=== PATIENT | female | born 1990 ===

== ENCOUNTER 2017-03-28 20:13 | Emergency (ER) | payer OTHER ==
[2017-03-28 20:31] VITALS: RESP 20; TEMP 97.6; O2SAT 100; BMI 25.7
[2017-03-28] MEDS ORDERED: TraMADol/Apap 37.5/325 mg Tab PO STA (22:27)
--- NOTE | 2017-03-28 22:39 | ED PDOC ---
Arrival/HPI - General Chief Complaint: Upper Extremity Problem/Injury Time Seen by Provider: 03/28/17 20:44 Historian: Patient - History of Present Illness Narrative History of Present Illness (Text): 03/28/17 22:36 Taty Montenegro is a 26 year old female who presents to the emergency department complaining of left shoulder pain for past week. States that pain is worsened with movement. Denies any trauma to area. States that she slept with a pillow under her shoulder a week ago and has had the pain since then. Reports of decreased range of motion secondary to pain. Denies fever, chills, swelling/ weakness/numbness of extremities, nausea, vomiting, urinary symptoms, or any other complaints at this time. Time/Duration: 1 week Symptom Course: Unchanged Severity Level: Mild Activities at Onset: Light Past Medical History - Provider Review Nursing Documentation Reviewed: Yes - Infectious Disease Hx of Infectious Diseases: None - Tetanus Immunization Tetanus Immunization: Unknown - Past Medical History Past Medical History: No Previous - Cardiac Hx Cardiac Disorders: No - Pulmonary Hx Respiratory Disorders: No - Neurological Hx Neurological Disorder: No Hx Vertigo: Yes - HEENT Hx HEENT Disorder: No - Renal Hx Renal Disorder: No - Endocrine/Metabolic Hx Endocrine Disorders: No - Hematological/Oncological Hx Blood Disorders: Yes Hx Anemia: Yes - Integumentary Hx Dermatological Disorder: No - Musculoskeletal/Rheumatological Hx Musculoskeletal Disorders: No - Gastrointestinal Hx Gastrointestinal Disorders: No - Genitourinary/Gynecological Hx Genitourinary Disorders: No - Psychiatric Hx Psychophysiologic Disorder: No Hx Substance Use: Yes - Past Surgical History Past Surgical History: No Previous - Surgical History Hx Orthopedic Surgery: Yes (/l knee meniscus) - Anesthesia Hx Anesthesia: Yes Hx Anesthesia Reactions: No Hx Malignant Hyperthermia: No - Suicidal Assessment Feels Threatened In Home Enviroment: No Family/Social History - Physician Review Nursing Documentation Reviewed: Yes Family/Social History: No Known Family HX Smoking Status: Former Smoker Hx Alcohol Use: No Hx Substance Use: Yes Substance used: Marijuana Hx Substance Use Treatment: No Allergies/Home Meds Allergies/Adverse Reactions: Allergies No Known Allergies Allergy (Verified 03/28/17 20:31) Review of Systems - Physician Review All systems were reviewed & negative as marked: Yes - Review of Systems Constitutional: Normal. absent: Fatigue, Fevers Respiratory: Normal. absent: SOB, Cough, Sputum Cardiovascular: Normal. absent: Chest Pain, Palpitations Musculoskeletal: Other (left shoulder pain ) Neurological: absent: Headache, Dizziness Psychiatric: Normal Physical Exam Vital Signs Reviewed: Yes Vital Signs Temp Pulse Resp BP Pulse Ox 03/28/17 22:56 70 20 110/70 100 03/28/17 20:30 97.6 F 72 20 114/69 100 Temperature: Afebrile Blood Pressure: Normal Pulse: Regular Respiratory Rate: Normal Appearance: Positive for: Well-Appearing, Non-Toxic, Comfortable Pain Distress: None Mental Status: Positive for: Alert and Oriented X 3 - Systems Exam Head: Present: Atraumatic, Normocephalic Pupils: Present: PERRL Conjunctiva: Present: Normal Mouth: Present: Moist Mucous Membranes Respiratory/Chest: Present: Clear to Auscultation, Good Air Exchange. No: Respiratory Distress, Accessory Muscle Use Cardiovascular: Present: Regular Rate and Rhythm, Normal S1, S2. No: Murmurs Upper Extremity: Present: NORMAL PULSES, Neurovascularly Intact, Other (pain with abduction of left shoulder ). No: Cyanosis, Edema, Swelling, Erythema, Deformity Lower Extremity: Present: Normal Inspection. No: Edema Neurological: Present: GCS=15, CN II-XII Intact, Speech Normal, Motor Func Grossly Intact, Normal Sensory Function Skin: Present: Warm, Dry, Normal Color. No: Rashes Psychiatric: Present: Alert, Oriented x 3, Normal Insight, Normal Concentration Medical Decision Making ED Course and Treatment: 03/28/17 22:42 Impression: A 26 year old female who presents to the emergency department complaining of 1 week duration of left shoulder pain. Plan: -- Ultracet -- Shoulder X-ray -- Urinalysis -- Reassess and disposition Progress Notes: 03/28/17 22:42 Shoulder X-ray results reviewed: Negative for any acute fracture or dislocation. On reevaluation the patient feels better and is in no acute distress. I have discussed the results and plan with the patient, who expresses understanding. Patient given the opportunity to ask question, all questions were answered and there is agreement with the plan to discharge the patient home. Patient is stable for discharge. Patient was instructed to follow up with physician/clinic in 1-2 days or return if symptoms persist/worsen or new concerning symptoms arise. - Lab Interpretations Lab Results: Lab Results 03/28/17 21:30: Urine HCG, Qual Negative I have reviewed the lab results: Yes - RAD Interpretation Radiology Orders: 03/28/17 20:59 SHOULDER LEFT [RAD] Stat Chaser Helper: ED Physician - Medication Orders Current Medication Orders: Discontinued Medications Tramadol/Acetaminophen (Ultracet 37.5/325 Mg) 1 tab PO ONCE STA Stop: 03/28/17 22:28 Last Admin: 03/28/17 22:55 Dose: 1 tab - Scribe Statement The provider has reviewed the documentation as recorded by the Yajaira Guevara Provider Attestation: All medical record entries made by the Davonibpetra were at my direction and personally dictated by me. I have reviewed the chart and agree that the record accurately reflects my personal performance of the history, physical exam, medical decision making, and the department course for this patient. I have also personally directed, reviewed, and agree with the discharge instructions and disposition. Disposition/Present on Arrival - Present on Arrival Any Indicators Present on Arrival: No History of DVT/PE: No History of Uncontrolled Diabetes: No Urinary Catheter: No History of Decub. Ulcer: No History Surgical Site Infection Following: None - Disposition Have Diagnosis and Disposition been Completed?: Yes Diagnosis: Shoulder pain Disposition: HOME/ ROUTINE Disposition Time: 22:40 Condition: GOOD Discharge Instructions (ExitCare): Shoulder Sprain (ED) Prescriptions: Tramadol HCl [Ultram] 50 mg PO QID #12 tab Referrals: Aleks Roman MD [Staff Provider] - Follow up with primary Denny Khoury DO [Primary Care Provider] - Follow up with primary
[2017-03-28 22:56] VITALS: BP 110/70; PULSE 70
--- NOTE | 2017-03-29 09:49 | RAD ---
PROCEDURE: Radiographs of the Left Shoulder HISTORY: pain COMPARISON: 09/21/2014 FINDINGS: BONES: Normal. No fracture. JOINTS: Normal. Glenohumeral and acromioclavicular joints preserved. No osteoarthritis. SOFT TISSUES: Normal. OTHER FINDINGS: None. IMPRESSION: Normal radiographs of the left shoulder.
== END 2017-03-28 22:57 | disposition home or self-care (01) ==
LOC: ED 20:13
DX: M25.512 Pain in left shoulder (principal)

== ENCOUNTER 2017-05-03 21:38 | Inpatient (IN) | payer OTHER ==
[2017-05-03 21:38] VITALS: BMI 25.7
[2017-05-03 21:45] VITALS: RESP 20; O2SAT 100
--- NOTE | 2017-05-03 21:59 | ED PDOC ---
Arrival/HPI - General Chief Complaint: Psychiatric Evaluation Time Seen by Provider: 05/03/17 21:43 Historian: Patient - History of Present Illness Narrative History of Present Illness (Text): 05/03/17 21:54 26yo female biba with the mother by the bedside for depression. Patient states she has been depressed since January. the mother who was by the bedside states patient is staying more in her bed, refusing to eat and threatening to commit suicide since she lost her job. States She came back today and met patient laying on the floor, vomiting with open medication bottles. Patient however denies SI. States she took 3tabs of Amoxicillin because she was having toothache. She reports vomiting for the past one week. Mother however states she only noticed the vomiting today. Patient denies suicidal ideation, HI, hallucination, Denies abdominal pain, diarrhea, headache, Past Medical History - Provider Review Nursing Documentation Reviewed: Yes - Infectious Disease Hx of Infectious Diseases: None - Tetanus Immunization Tetanus Immunization: Unknown - Past Medical History Past Medical History: No Previous - Cardiac Hx Cardiac Disorders: No - Pulmonary Hx Respiratory Disorders: No - Neurological Hx Neurological Disorder: No Hx Vertigo: Yes - HEENT Hx HEENT Disorder: No - Renal Hx Renal Disorder: No - Endocrine/Metabolic Hx Endocrine Disorders: No - Hematological/Oncological Hx Blood Disorders: Yes Hx Anemia: Yes - Integumentary Hx Dermatological Disorder: No - Musculoskeletal/Rheumatological Hx Musculoskeletal Disorders: No - Gastrointestinal Hx Gastrointestinal Disorders: No - Genitourinary/Gynecological Hx Genitourinary Disorders: No - Psychiatric Hx Psychophysiologic Disorder: No Hx Substance Use: Yes (quit on February 2017) - Past Surgical History Past Surgical History: No Previous - Surgical History Hx Orthopedic Surgery: Yes (/l knee meniscus) - Anesthesia Hx Anesthesia: Yes Hx Anesthesia Reactions: No Hx Malignant Hyperthermia: No - Suicidal Assessment Feels Threatened In Home Enviroment: No Family/Social History - Physician Review Nursing Documentation Reviewed: Yes Family/Social History: Unknown Family HX Smoking Status: Former Smoker Hx Alcohol Use: No Hx Substance Use: Yes (quit on February 2017) Substance used: Marijuana Hx Substance Use Treatment: No Allergies/Home Meds Allergies/Adverse Reactions: Allergies No Known Allergies Allergy (Verified 03/28/17 20:31) Home Medications: Home Meds Medication Instructions Recorded Confirmed No Known Home Med 05/03/17 05/03/17 Review of Systems - Physician Review All systems were reviewed & negative as marked: Yes - Review of Systems Constitutional: Normal Eyes: Normal ENT: Normal Respiratory: Normal Cardiovascular: Normal Gastrointestinal: Normal Genitourinary Female: Normal Musculoskeletal: Normal Skin: Normal Neurological: Normal Endocrine: Normal Hemo/Lymphatic: Normal Psychiatric: Depression. absent: Anxiety, Suicidal Ideation Physical Exam Vital Signs Reviewed: Yes Vital Signs Temp Pulse Resp BP Pulse Ox 05/03/17 21:45 98.3 F 82 20 131/70 100 Temperature: Afebrile Blood Pressure: Normal Pulse: Regular Respiratory Rate: Normal Appearance: Positive for: Well-Appearing, Non-Toxic, Comfortable Pain Distress: None Mental Status: Positive for: Alert and Oriented X 3 - Systems Exam Head: Present: Atraumatic, Normocephalic Pupils: Present: PERRL Extroacular Muscles: Present: EOMI Conjunctiva: Present: Normal Mouth: Present: Moist Mucous Membranes Neck: Present: Normal Range of Motion Respiratory/Chest: Present: Clear to Auscultation, Good Air Exchange. No: Respiratory Distress, Accessory Muscle Use Cardiovascular: Present: Regular Rate and Rhythm, Normal S1, S2. No: Murmurs Abdomen: Present: Normal Bowel Sounds. No: Tenderness, Distention, Peritoneal Signs Back: Present: Normal Inspection Upper Extremity: Present: Normal Inspection. No: Cyanosis, Edema Lower Extremity: Present: Normal Inspection. No: Edema Neurological: Present: GCS=15, CN II-XII Intact, Speech Normal Skin: Present: Warm, Dry, Normal Color. No: Rashes Psychiatric: Present: Alert, Oriented x 3, Normal Insight, Normal Concentration , Depressed Mood Medical Decision Making ED Course and Treatment: 05/03/17 23:30 PT was stable in ED and medically cleared in ED for psych evaluation. She was seen in ED by PES screener Jerson. Jerson states patient refused to sign in voluntarily and Dr. Roberts request [facility] to screen the patient. 05/04/17 00:36 Pt later changed her mind and signed in voluntarily. she was admitted to Dr. Roberts. - Lab Interpretations Lab Results: 05/03/17 22:49 05/03/17 22:49 Lab Results 05/03/17 23:59: Urine Opiates Screen Positive H, Urine Methadone Screen Negative , Ur Barbiturates Screen Negative, Ur Phencyclidine Scrn Negative, Ur Amphetamines Screen Negative, U Benzodiazepines Scrn Negative, U Oth Cocaine Metabols Negative, U Cannabinoids Screen Negative 05/03/17 23:59: Urine Color Yellow, Urine Appearance Sl cloudy, Urine pH 6.0, Ur Specific [place] >= 1.030, Urine Protein Trace H, Urine Glucose (UA) Negative , Urine Ketones Trace H, Urine Blood Large H, Urine Nitrate Negative, Urine Bilirubin Negative, Urine Urobilinogen 0.2, Ur Leukocyte Esterase Negative, Urine RBC 5 - 10, Urine WBC 0 - 2, Ur Epithelial Cells 0 - 2, Urine Bacteria Small 05/03/17 22:49: Alcohol, Quantitative < 10 05/03/17 22:49: Salicylates < 1 L, Acetaminophen < 10.0 L 05/03/17 22:49: Sodium 137, Potassium 4.0, Chloride 105, Carbon Dioxide 23, Anion Gap 13, BUN 10, Creatinine 0.7, Est GFR ( Amer) > 60, Est GFR (Non- Af Amer) > 60, Random Glucose 96, Calcium 9.7, Total Bilirubin 0.6, AST 23, ALT 25, Alkaline Phosphatase 70, Total Protein 8.0, Albumin 4.3, Globulin 3.7, Albumin/Globulin Ratio 1.2 05/03/17 22:49: WBC 12.8 H, RBC 4.13, Hgb 11.7 L, Hct 35.8 L, MCV 86.7, MCH 28.3 , MCHC 32.7, RDW 13.2, Plt Count 283, MPV 9.8, Gran % 86.3 H, Lymph % (Auto) 10.3 L, [place] % (Auto) 3.1, Eos % (Auto) 0.1 L, Baso % (Auto) 0.2, Gran # 11.04 H , Lymph # 1.3, [place] # 0.4, Eos # 0.0, Baso # 0.02 Disposition/Present on Arrival - Present on Arrival Any Indicators Present on Arrival: No History of DVT/PE: No History of Uncontrolled Diabetes: No Urinary Catheter: No History of Decub. Ulcer: No History Surgical Site Infection Following: None - Disposition Have Diagnosis and Disposition been Completed?: Yes Diagnosis: Major depressive episode Disposition: HOSPITALIZED Disposition Time: 00:15 Patient Problems: Current Active Problems Problem Status Onset Major depressive episode Acute Condition: FAIR
[2017-05-03 23:04] LABS: ADD MANUAL DIFF? NO
[2017-05-03 23:13] LABS: BASO # 0.02 K/mm3 (0.0-2.0); BASO % 0.2 % (0.0-3.0); EOS % 0.1 % (1.5-5.0); GRAN # 11.04 (1.4-6.5); GRAN % 86.3 % (50.0-68.0); HEMATOCRIT 35.8 % (36.0-48.0); LYMPH # 1.3 (1.2-3.4); LYMPH % 10.3 % (22.0-35.0); MEAN CELL VOLUME 86.7 fL (80.0-105.0); MEAN CORPUSCULAR HEMOGLOBIN 28.3 pg (25.0-35.0); MEAN CORPUSCULAR HGB CONC 32.7 g/dl (31.0-37.0); MEAN PLATELET VOLUME 9.8 fl (7.0-11.0); MONO # 0.4 (0.1-0.6); MONO % 3.1 % (1.0-6.0); PLATELET COUNT 283 10^3/uL (120.0-450.0); RED CELL DISTRIBUTION WIDTH 13.2 % (11.5-14.5); WHITE BLOOD COUNT 12.8 10^3/ul (4.5-11.0)
[2017-05-03 23:25] LABS: ALB/GLOB RATIO 1.2 (1.1-1.8); ALKALINE PHOSPHATASE 70 U/L (38-133); ALT/SGPT 25 U/L (7-56); AST/SGOT 23 U/L (15-39); BILIRUBIN,TOTAL 0.6 mg/dL (0.2-1.3); BLOOD UREA NITROGEN 10 mg/dL (7-21); CALCIUM 9.7 mg/dL (8.4-10.5); CARBON DIOXIDE 23 mmol/L (21-33); CHLORIDE 105 mmol/L (98-107); GFR AFRICAN-AMERICAN > 60; GLUCOSE,RANDOM 96 mg/dL (70-110); SODIUM 137 mmol/L (132-148)
[2017-05-04 00:12] LABS: URINE BILIRUBIN NEGATIVE (NEGATIVE); URINE BLOOD LARGE (NEGATIVE); URINE GLUCOSE (UA) NEGATIVE (NEGATIVE); URINE KETONE TRACE mg/dL (NEGATIVE); URINE LEUKOCYTE ESTERASE NEGATIVE Leu/uL (NEGATIVE); URINE PROTEIN TRACE mg/dL (<30 mg/dL); URINE UROBILINOGEN 0.2 E.U./dL (<1 E.U./dL)
[2017-05-04 00:13] LABS: URINE APPEARANCE SL CLOUDY (CLEAR); URINE COLOR YELLOW (YELLOW)
[2017-05-04 00:19] LABS: URINE EPITHELIAL CELLS 0 - 2 /hpf (0-5); URINE WBC 0 - 2 /hpf (0-6)
[2017-05-04 00:20] LABS: URINE BACTERIA SMALL (NEG)
[2017-05-04] MEDS ORDERED: Alum-Mag Hydrox-Simethicone Susp (30 mL) PO PRN (02:03)
[2017-05-04] MEDS ORDERED: Magnesium Hydroxide Susp 30 ml UD PO PRN (02:03)
--- NOTE | 2017-05-04 03:54 | PCM.BM ---
<Emery Abreu - Last Filed: 05/04/17 03:53> Treatment Plan Problems - Problems identified on initial assessmt Problem 1 Date Initiated: Depression Time Initiated: 03:54 Assessment reference: NA Status: Active Priority: 1 <Alejandra Young - Last Filed: 05/04/17 09:47> DSM5-Treatment Plan - Diagnosis (1) Overdose Status: Acute Interventions: 05/04/17 09:47 monitor vitals coping strategies suicide and homicide prevention safety plan pt will be seen by medical team supportive therapy (2) Adjustment disorder with mixed anxiety and depressed mood Status: Acute Interventions: 05/04/17 09:53 * Assess/adjust medications daily and /or as needed * See patient on an individual basis 7x/week to assess symptoms * Educate patient regarding benefits, side effects and risks of prescribed medications * supportive therapy * family involvement * SW evaluation (3) Self-injurious behavior Status: Acute Interventions: 05/04/17 09:55 CBT safety plan coping strategies therapy/med management suicide and homicide prevention (4) Major depressive episode Status: Acute Interventions: 05/04/17 09:55 * Assess/adjust medications daily and /or as needed * See patient on an individual basis 7x/week to assess symptoms of depression * Monitor for side effects & effectiveness of medications * suicide and homicide prevention * meds and f/u compliance * supportive therapy <Nia Montenegro - Last Filed: 05/04/17 12:22> Treatment Plan Problems - Problems identified on initial assessmt Problem 1 Date Initiated: 05/04/17 Treatment team patient informa Patient Assests: cooperative, motivated, ADL independent, physically healthy, good support system, cognitively intact Patient Liabilities: financial problems - Milieu Protocol Maintain good personal hygiene: daily Encourage regular showers, daily Remind patient to perform daily oral care, daily Assist patient to perform ADL's Conduct patient checks and document Observation sheet: Q15 minutes Maintain personal safety: daily Educate patient to report safety concerns to staff, daily Monitor environment for contraband/sharps Medication safety: Monitor for expected outcome, potential side effects: daily, Assess barriers to learning: daily, Assess readiness for medication education: daily Family Contact Family contact: Patient agrees to contact - Goals for Treatment Patient goals for treatment: to get out of here to get a job Discharge/Continuing Care - Education Needs Education Needs: Patient Medication, Patient Diagnosis/Disease Process, Patient Coping Skills, Patient Community resources, Patient Activities of Daily Living, Patient Health Practices/Safety, Patient Personal Hygiene/Grooming, Patient Aftercare Safety Plan - Discharge Discharge Criteria: Free of Suicidal thoughts, Normal sleep pattern Discharge to:: Home - Treatment Team Participation Was Patient/Family/SO present at Treatment Team Meeting: Yes <Carolina Perez - Last Filed: 05/04/17 17:14> Family Contact Family involvement: Family/SO is involved Family contact: Family contacted unit to give information Family contact name: Bárbara Cuevas(mother) [phone] Family contacted how many times per week?: 2
[2017-05-04 08:35] LABS: CHOLESTEROL 165 mg/dL (130-200)
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
--- NOTE | 2017-05-04 15:58 | CARD ---
APPROVED REPORT EKG Measurement Heart [id number] <Conclusion> Normal sinus rhythm Normal ECG
--- NOTE | 2017-05-04 16:03 | CP.PCM.CON ---
History of Present Illness - History of Present Illness History of Present Illness: Hospitalist note: Routine medical evaluation. patient seen examined in room 517. Patient is alert, awake And oriented. Patient is a 26 year-old female admitted with depression and suicidal thoughts. Patient currently denies any suicidal/homicidal ideation. Denies any fevers, chills. Denies any abdominal pain, nausea, vomiting. denies any urinary, bowel symptoms. Denies any chest pain,shortness of breath. denies any diarrhea. Tolerating diet well. Ambulating fine. Patient took 2 pills of amoxicillin given by dentist. Patient initially wanted to take pain pills to control her tooth ache. patient is complaining of increasing depression secondary to losing her job and her house. Recently moved back with her mother in [place]. denies any previous psychiatric problems. Past medical history; anemia dental caries Medications at home; Amoxicillin Allergies; No known drug allergy Social history; denies smoking Denies alcohol abuse denies drug abuse family history; Not significant Currently lives in [place] with her mother Review of Systems - Constitutional Constitutional: absent: Anorexia, Chills - EENT Eyes: absent: Blurred Vision Nose/Mouth/Throat: absent: Nasal Congestion - Cardiovascular Cardiovascular: absent: Chest Pain, Chest Pain at Rest, Edema - Respiratory Respiratory: absent: Cough, Dyspnea, Wheezing - Gastrointestinal Gastrointestinal: absent: Abdominal Pain, Cramping, Diarrhea, Nausea, Vomiting - Musculoskeletal Musculoskeletal: absent: Abnormal Gait - Psychiatric Psychiatric: absent: Anxiety, Depression - Hematologic/Lymphatic Hematologic: absent: Easy Bleeding, Easy Bruising Past Patient History - Infectious Disease Hx of Infectious Diseases: None - Tetanus Immunizations Tetanus Immunization: Unknown - Past Social History Smoking Status: Former Smoker Alcohol: None Drugs: Denies Home Situation {Lives}: With Family - CARDIAC Hx Cardiac Disorders: No - PULMONARY Hx Respiratory Disorders: No - NEUROLOGICAL Hx Neurological Disorder: No Hx Vertigo: Yes - HEENT Hx HEENT Problems: No - RENAL Hx Chronic Kidney Disease: No - ENDOCRINE/METABOLIC Hx Endocrine Disorders: No - HEMATOLOGICAL/ONCOLOGICAL Hx Blood Disorders: Yes Hx Anemia: Yes - INTEGUMENTARY Hx Dermatological Problems: No - MUSCULOSKELETAL/RHEUMATOLOGICAL Hx Musculoskeletal Disorders: No - GASTROINTESTINAL Hx Gastrointestinal Disorders: No - GENITOURINARY/GYNECOLOGICAL Hx Genitourinary Disorders: No - PSYCHIATRIC Hx Substance Use: Yes (marijuana-quit March 10, 2017) - SURGICAL HISTORY Hx Orthopedic Surgery: Yes (/l knee meniscus) - ANESTHESIA Hx Anesthesia: Yes Hx Anesthesia Reactions: No Hx Malignant Hyperthermia: No Meds Allergies/Adverse Reactions: Allergies Allergy/AdvReac Type Severity Reaction Status Date / Time No Known Allergies Allergy Verified 05/04/17 03:38 - Medications Medications: Current Medications Acetaminophen (Tylenol 325mg Tab) 650 mg PO Q4 PRN PRN Reason: Pain, moderate (4-7) Al Hydrox/Mg Hydrox/Simethicone (Maalox Plus 30 Ml) 30 ml PO DAILY PRN PRN Reason: Upset Stomach Magnesium Hydroxide (Milk Of Magnesia) 30 ml PO DAILY PRN PRN Reason: Constipation Physical Exam - Constitutional Appears: Well, Non-toxic - Head Exam Head Exam: NORMAL INSPECTION - Eye Exam Eye Exam: Normal appearance - ENT Exam ENT Exam: Mucous Membranes Moist - Respiratory Exam Respiratory Exam: NORMAL BREATHING PATTERN - Cardiovascular Exam Cardiovascular Exam: REGULAR RHYTHM - GI/Abdominal Exam GI & Abdominal Exam: Normal Bowel Sounds, Soft. absent: Tenderness - Extremities Exam Extremities exam: Negative for: pedal edema - Back Exam Back exam: absent: CVA tenderness (L), CVA tenderness (R) - Neurological Exam Neurological exam: Alert, Oriented x3 - Psychiatric Exam Psychiatric exam: Normal Affect - Skin Skin Exam: Normal Color Results - Vital Signs Recent Vital Signs: Last Vital Signs Temp 98.3 F 05/04/17 07:39 Pulse 74 05/04/17 07:39 Resp 20 05/04/17 07:39 BP 102/65 05/04/17 07:39 Pulse Ox 100 05/03/17 21:45 - Labs Result Diagrams: 05/05/17 07:00 05/03/17 22:49 Labs: Laboratory Results - last 24 hr 05/04/17 07:30 Triglycerides 33 L Cholesterol 165 LDL Cholesterol Direct 110 HDL Cholesterol 48 Assessment & Plan - Assessment and Plan (Free Text) Plan: 1.patient is a 26-year-old female admitted with depression. currently denies any suicidal ideation. 2. Urine drug screen is positive for opiates. denies any drug use. 3. Mild leukocytosis; patient is afebrile and nontoxic. No signs of infection. leukocytosis is improving.. 4. Blood in UA; repeat UA showed improved rbc. No urinary symptoms. 5.history of anemia; hemoglobin is stable. Currently no acute Medical issues. please reconsult as needed. Thank you for the courtesy of this consultation.
[2017-05-04 22:21] LABS: URINE BILIRUBIN NEGATIVE (NEGATIVE); URINE BLOOD MODERATE (NEGATIVE); URINE GLUCOSE (UA) NEGATIVE (NEGATIVE); URINE KETONE NEGATIVE (NEGATIVE); URINE LEUKOCYTE ESTERASE NEGATIVE Leu/uL (NEGATIVE); URINE PROTEIN TRACE mg/dL (<30 mg/dL); URINE UROBILINOGEN 0.2 E.U./dL (<1 E.U./dL)
[2017-05-04 22:22] LABS: URINE COLOR YELLOW (YELLOW)
[2017-05-04 22:31] LABS: URINE APPEARANCE SL CLOUDY (CLEAR); URINE BACTERIA MOD (NEG)
[2017-05-05 07:44] LABS: HEMATOCRIT 32.5 % (36.0-48.0); MEAN CELL VOLUME 86.9 fL (80.0-105.0); MEAN CORPUSCULAR HEMOGLOBIN 28.3 pg (25.0-35.0); MEAN CORPUSCULAR HGB CONC 32.6 g/dl (31.0-37.0); RED CELL DISTRIBUTION WIDTH 13.4 % (11.5-14.5); WHITE BLOOD COUNT 11.4 10^3/ul (4.5-11.0)
[2017-05-05 07:55] VITALS: TEMP 98.1
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
[2017-05-05 15:42] VITALS: BP 106/60; PULSE 76
== END 2017-05-05 17:00 | disposition left against medical advice (07) | DRG 882 ==
LOC: ED 21:38 → ERH 05-04 00:04 → PSYC 05-04 01:22
PROVIDERS: ADMIT Psychiatry & Neurology Psychiatry; ATTEND Psychiatry & Neurology Psychiatry
DX: F43.23 Adjustment disorder with mixed anxiety and depressed mood (principal); F32.9 Major depressive disorder, single episode, unspecified; D64.9 Anemia, unspecified; K02.9 Dental caries, unspecified; R40.2412 Glasgow coma scale score 13-15, at arrival to emergency department; Z87.891 Personal history of nicotine dependence; Z59.9 Problem related to housing and economic circumstances, unspecified; Z81.8 Family history of other mental and behavioral disorders

== ENCOUNTER 2017-05-23 13:04 | Emergency (ER) | payer OTHER ==
[2017-05-23 13:05] VITALS: BMI 25.7
--- NOTE | 2017-05-23 13:31 | ED PDOC ---
Arrival/HPI - General Time Seen by Provider: 05/23/17 13:28 Historian: Patient - History of Present Illness Narrative History of Present Illness (Text): 05/23/17 13:28 26 y/o female, no significant pmh, nkda, c/o lt. ankle pain and swelling s/p injury while running and playing the soft ball about 2 days ago. Pt. was taken to the [facility] ER by ambulance and had negative xray, discharge home with the aircast, stated that she still has pain, has crutches, no calf pain and no heel pain, no numbness or tingling, no other medical or psychological complaints. Past Medical History - Provider Review Nursing Documentation Reviewed: Yes - Infectious Disease Hx of Infectious Diseases: None - Tetanus Immunization Tetanus Immunization: Unknown - Past Medical History Past Medical History: No Previous - Cardiac Hx Cardiac Disorders: No - Pulmonary Hx Respiratory Disorders: No - Neurological Hx Neurological Disorder: No Hx Vertigo: Yes - HEENT Hx HEENT Disorder: No - Renal Hx Renal Disorder: No - Endocrine/Metabolic Hx Endocrine Disorders: No - Hematological/Oncological Hx Blood Disorders: Yes Hx Anemia: Yes - Integumentary Hx Dermatological Disorder: No - Musculoskeletal/Rheumatological Hx Musculoskeletal Disorders: No - Gastrointestinal Hx Gastrointestinal Disorders: No - Genitourinary/Gynecological Hx Genitourinary Disorders: No - Psychiatric Hx Substance Use: Yes (marijuana-quit March 10, 2017) - Past Surgical History Past Surgical History: No Previous - Surgical History Hx Orthopedic Surgery: Yes (/l knee meniscus) - Anesthesia Hx Anesthesia: Yes Hx Anesthesia Reactions: No Hx Malignant Hyperthermia: No - Suicidal Assessment Feels Threatened In Home Enviroment: No Family/Social History - Physician Review Nursing Documentation Reviewed: Yes Family/Social History: Unknown Family HX Smoking Status: Former Smoker Hx Alcohol Use: Yes Hx Substance Use: Yes (marijuana-quit March 10, 2017) Substance used: Marijuana Hx Substance Use Treatment: No Allergies/Home Meds Allergies/Adverse Reactions: Allergies No Known Allergies Allergy (Verified 05/04/17 03:38) Review of Systems - Review of Systems Constitutional: absent: Fatigue, Fevers Eyes: absent: Vision Changes ENT: absent: Hearing Changes Respiratory: absent: SOB, Cough Gastrointestinal: absent: Abdominal Pain, Nausea, Vomiting Musculoskeletal: Arthralgias, Joint Swelling. absent: Back Pain, Neck Pain, Myalgias Skin: absent: Rash, Pruritis, Skin Lesions Neurological: absent: Headache, Dizziness Physical Exam Vital Signs Temp Pulse Resp BP Pulse Ox 05/23/17 13:36 98.2 F 98 H 16 135/74 98 - Systems Exam Head: Present: Atraumatic, Normocephalic Pupils: Present: PERRL Extroacular Muscles: Present: EOMI Conjunctiva: Present: Normal Mouth: Present: Moist Mucous Membranes Neck: Present: Normal Range of Motion Respiratory/Chest: Present: Clear to Auscultation, Good Air Exchange. No: Respiratory Distress, Accessory Muscle Use Cardiovascular: Present: Regular Rate and Rhythm, Normal S1, S2. No: Murmurs Abdomen: Present: Normal Bowel Sounds. No: Tenderness, Distention, Peritoneal Signs Back: Present: Normal Inspection Upper Extremity: Present: Normal Inspection. No: Cyanosis, Edema Lower Extremity: Present: Normal Inspection, Other (Lt. ankle/foot: +ttp and ecchymosis with swelling on the lateral foot and ankle region, no deformity, negative renae and frey signs, able to perform gas pedal movement with palpable intact achilles, FROM without limitation, sensation intact, motor 5/5, +DPPT pulses, capillary refill< 2 seconsd, neurovascular intact. ). No: Edema Neurological: Present: GCS=15, Speech Normal, Motor Func Grossly Intact, Gait Normal, Memory Normal Skin: Present: Warm, Dry, Normal Color. No: Rashes Psychiatric: Present: Alert, Oriented x 3, Normal Insight, Normal Concentration Medical Decision Making ED Course and Treatment: 05/23/17 13:31 -lt. foot/ankle CT -posterior splint applied by me with neurovascular intact. 05/23/17 15:14 -CT confirmed lateral malleolus fracture with no disruption of the ankle joint, posterior splint applied by me with neurovascular intact. -Discharge home with naproxen, posterior splint, crutches, elevation, ice compression, follow up with your own pmd and orthopedic within 2 days, return to the ER for any new or worsening signs or symptoms. - RAD Interpretation Radiology Orders: 05/23/17 13:41 EXT LOWER W/O CONTRAST LEFT [CT] Stat PROCEDURE: CT of the left ankle HISTORY: negative xray, lt. ankle/foot lateral pain/swellin COMPARISON: TECHNIQUE: CT of the left ankle was performed in the axial plane with sagittal and coronal reconstructions. FINDINGS: There is a displaced obliquely oriented fracture through the lateral malleolus at the level of the ankle joint. There is no disruption of the ankle joint. The medial malleolus is intact. 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 Disposition/Present on Arrival - Present on Arrival Any Indicators Present on Arrival: No History of DVT/PE: No History of Uncontrolled Diabetes: No Urinary Catheter: No History of Decub. Ulcer: No History Surgical Site Infection Following: None - Disposition Have Diagnosis and Disposition been Completed?: Yes Diagnosis: Fractured lateral malleolus, Ankle fracture Disposition: HOME/ ROUTINE Disposition Time: 13:31 Patient Plan: Discharge Condition: IMPROVED Additional Instructions: Discharge home with naproxen, posterior splint, crutches, elevation, ice compression, follow up with your own pmd and orthopedic within 2 days, return to the ER for any new or worsening signs or symptoms. Prescriptions: Naproxen 500 mg PO BID PRN #20 tab PRN Reason: Other Referrals: PCP,NO [Primary Care Provider] - Follow up with primary Mahin Peña DO [Staff Provider] - Follow up with primary [facility] [Outside] - Follow up with primary Forms: WORK NOTE
[2017-05-23] MEDS ORDERED: Oxycodone/Acetaminophen 5/325 mg Tab PO STA (13:41)
[2017-05-23 13:45] VITALS: RESP 16; TEMP 98.2
--- NOTE | 2017-05-23 15:02 | CT ---
PROCEDURE: CT of the left ankle HISTORY: negative xray, lt. ankle/foot lateral pain/swellin COMPARISON: TECHNIQUE: CT of the left ankle was performed in the axial plane with sagittal and coronal reconstructions. FINDINGS: There is a displaced obliquely oriented fracture through the lateral malleolus at the level of the ankle joint. There is no disruption of the ankle joint. The medial malleolus is intact. There is subcutaneous edema over the lateral aspect of the ankle IMPRESSION: Displaced obliquely oriented fracture of the lateral malleolus
[2017-05-23 15:38] VITALS: BP 128/77; PULSE 72; O2SAT 99
== END 2017-05-23 15:26 | disposition home or self-care (01) ==
LOC: ED 13:04
DX: S82.62XA Displaced fracture of lateral malleolus of left fibula, initial encounter for closed fracture (principal); X58.XXXA Exposure to other specified factors, initial encounter; Y93.64 Activity, baseball

== ENCOUNTER 2017-08-29 13:08 | Emergency (ER) | payer OTHER ==
[2017-08-29 13:09] VITALS: BMI 25.7
--- NOTE | 2017-08-29 13:31 | ED PDOC ---
Arrival/HPI - General Time Seen by Provider: 08/29/17 13:30 Historian: Patient - History of Present Illness Narrative History of Present Illness (Text): 08/29/17 13:31 27 year old female, no significant pmh, nkda, complaining of fever/cough/ throat with abdominal pain with diarrhea x 3 days. Pt. stated she has fever for the past 3 days associated with the cough and throat pain, started to have lt. sided abdominal pain with diarrhea about 2 days ago, no night sweat, no dizziness, no numbness or tingling, no palpitation, no rash, no rash, admits fatigue, no vaginal bleeding or discharge, no other medical or psychological complaints. Past Medical History - Provider Review Nursing Documentation Reviewed: Yes - Infectious Disease Hx of Infectious Diseases: None - Tetanus Immunization Tetanus Immunization: Unknown - Past Medical History Past Medical History: No Previous - Cardiac Hx Cardiac Disorders: No - Pulmonary Hx Respiratory Disorders: No - Neurological Hx Neurological Disorder: No Hx Vertigo: Yes - HEENT Hx HEENT Disorder: No - Renal Hx Renal Disorder: No - Endocrine/Metabolic Hx Endocrine Disorders: No - Hematological/Oncological Hx Blood Disorders: Yes Hx Anemia: Yes - Integumentary Hx Dermatological Disorder: No - Musculoskeletal/Rheumatological Hx Musculoskeletal Disorders: No - Gastrointestinal Hx Gastrointestinal Disorders: No - Genitourinary/Gynecological Hx Genitourinary Disorders: No - Psychiatric Hx Substance Use: Yes (marijuana-quit March 10, 2017) - Past Surgical History Past Surgical History: No Previous - Surgical History Hx Orthopedic Surgery: Yes (/l knee meniscus) - Anesthesia Hx Anesthesia: Yes Hx Anesthesia Reactions: No Hx Malignant Hyperthermia: No - Suicidal Assessment Feels Threatened In Home Enviroment: No Family/Social History - Physician Review Nursing Documentation Reviewed: Yes Family/Social History: Unknown Family HX Smoking Status: Former Smoker Hx Alcohol Use: Yes Hx Substance Use: Yes (marijuana-quit March 10, 2017) Substance used: Marijuana Hx Substance Use Treatment: No Allergies/Home Meds Allergies/Adverse Reactions: Allergies No Known Allergies Allergy (Verified 05/04/17 03:38) Review of Systems - Review of Systems Constitutional: Fatigue, Fevers Eyes: absent: Vision Changes ENT: Sore Throat. absent: Hearing Changes, Rhinorrhea Respiratory: Cough. absent: SOB, Sputum, Wheezing Cardiovascular: absent: Chest Pain Gastrointestinal: Abdominal Pain, Diarrhea. absent: Constipation, Nausea, Vomiting Musculoskeletal: absent: Arthralgias, Back Pain, Myalgias Skin: absent: Rash, Pruritis Neurological: absent: Headache, Dizziness Hemo/Lymphatic: absent: Adenopathy Physical Exam Vital Signs Reviewed: Yes Vital Signs Temp Pulse Resp BP Pulse Ox 08/29/17 18:00 98.8 F 79 16 103/55 L 100 08/29/17 16:10 98.6 F 77 18 125/51 L 99 08/29/17 13:29 100.0 F H 101 H 16 118/85 98 08/29/17 13:09 100.8 F H Temperature: Febrile Blood Pressure: Normal Pulse: Tachycardic Respiratory Rate: Normal Appearance: Positive for: Well-Appearing, Ill-Appearing, Uncomfortable Pain Distress: Severe Mental Status: Positive for: Alert and Oriented X 3 - Systems Exam Head: Present: Atraumatic, Normocephalic Pupils: Present: PERRL Extroacular Muscles: Present: EOMI Conjunctiva: Present: Normal Mouth: Present: Moist Mucous Membranes Pharnyx: Present: EXUDATE, TONSILS ENLARGED. No: ERYTHEMA, Uvular Deviation, Muffled/Hoarse Voice, Strider, Soft Palate/Uvular Edema Neck: Present: Normal Range of Motion, Lymphadenopathy (+lt. anterior cervical lymphenapathy), Trachea Midline. No: Meningeal Signs, MIDLINE TENDERNESS Respiratory/Chest: Present: Clear to Auscultation, Good Air Exchange. No: Respiratory Distress, Accessory Muscle Use, Wheezes, Decreased Breath Sounds, Rales, Retracting, Rhonchi, Tachypneic, Tender to Palpation Cardiovascular: Present: Regular Rate and Rhythm, Normal S1, S2. No: Murmurs Abdomen: Present: Tenderness (LUQ and LLQ), Normal Bowel Sounds. No: Distention , Peritoneal Signs, Rebound, Guarding Genitourinary/Pelvic Exam: Present: Other (Patient deferred and refused. ) Back: Present: Normal Inspection. No: CVA Tenderness, Midline Tenderness Upper Extremity: Present: Normal Inspection. No: Cyanosis, Edema Lower Extremity: Present: Normal Inspection. No: Edema Neurological: Present: GCS=15, Speech Normal, Motor Func Grossly Intact, Gait Normal, Memory Normal Skin: Present: Warm, Dry, Normal Color. No: Rashes Psychiatric: Present: Alert, Oriented x 3, Normal Insight, Normal Concentration Medical Decision Making ED Course and Treatment: 08/29/17 13:49 -labs/ua/vbg -CT abdomen and pelvis -Chest xray -IVF/toradol/tylenol/pepcid/zofran -Observe and reassess 08/29/17 16:23 -Chest xray: no active disease -CT Soft tissue neck show: Bilateral cervical adenopathy left greater than right with no evidences of the abscess. -CT abdominal and pelvis show: 12 mm rounded hyperdense structure in the left ovary of questionable significance. Consider correlation with transvaginal pelvic ultrasound examination. The remainder of the examination is unremarkable. -Labs are non-significant except wbc 11.4 with potassium 3.4 -Urinalysis show no obvious UTI. -Rapid strep negative -Rapid flu is negative -Lactic acid within normal limit. -Transvaginal sonogram ordered. 08/29/17 18:56 -Transvaginal show ovarian cysts with bilateral ovaries normal blood flow, no signs of torsion. -Pt. feels much better, tolerating po, will discharge home. -Discharge home with augmentin, pepcid, motrin, zofran, stay hydrated, bed rest , follow up with your own pmd and ENT/Obgyn/GI within 2 days, return to the Emergency room for any new or worsening signs or symptoms. - Lab Interpretations Lab Results: 08/29/17 14:00 08/29/17 14:00 Lab Results 08/29/17 15:30: Urine Color Yellow, Urine Appearance Turbid, Urine pH 6.5, Ur Specific [place] 1.025, Urine Protein 100 H, Urine Glucose (UA) Negative, Urine Ketones >=80, Urine Blood Large H, Urine Nitrate Negative, Urine Bilirubin Moderate H, Urine Urobilinogen 1.0 H, Ur Leukocyte Esterase Trace H, Urine RBC Tntc, Urine WBC 0 - 2, Urine Bacteria Trace 08/29/17 14:00: Influenza Typ A,B (EIA) Negative for flu a/b 08/29/17 14:00: Sodium 141, Chloride 102, Potassium 3.4 L, Carbon Dioxide 28, Anion Gap 14, BUN 10, Creatinine 0.7, Est GFR ( Amer) > 60, Est GFR (Non- Af Amer) > 60, Random Glucose 91, Calcium 9.4, Total Bilirubin 0.7, AST 33, ALT 30, Alkaline Phosphatase 61, Total Protein 8.1, Albumin 4.4, Globulin 3.7, Albumin/Globulin Ratio 1.2, Lipase 23 08/29/17 14:00: pO2 43, VBG pH 7.38, VBG pCO2 47.0, VBG HCO3 27.8, VBG Total CO2 29.2 H, VBG O2 Sat (Calc) 86.3 H, VBG Base Excess 2.0, VBG Potassium 3.5 L, Sodium 137.0, Chloride 103.0, Glucose 91, Lactate 1.1, FiO2 21.0, Venous Blood Potassium 3.5 L 08/29/17 14:00: Grp A Beta Strep Ag Negative 08/29/17 14:00: WBC 11.4 H, RBC 4.01, Hgb 11.3 L, Hct 34.6 L, MCV 86.3, MCH 28.2 , MCHC 32.7, RDW 14.2, Plt Count 217, MPV 10.2, Gran % 79.2 H, Lymph % (Auto) 10.4 L, [place] % (Auto) 10.2 H, Eos % (Auto) 0.1 L, Baso % (Auto) 0.1, Gran # 9.02 H, Lymph # 1.2, [place] # 1.2 H, Eos # 0.0, Baso # 0.01 Interpretation: Abnormal lab values (wbc 11.4, K+ 3.4) - RAD Interpretation Radiology Orders: 08/29/17 13:43 ABD & PELVIS IV CONTRAST ONLY [CT] Stat CHEST ONE VIEW [RAD] Stat 08/29/17 15:09 NECK SOFT TISSUE W/CONTRAST [CT] Stat 08/29/17 16:21 TRANSVAGINAL [US] Stat PROCEDURE: CHEST RADIOGRAPH, 1 VIEW HISTORY: medical clearance COMPARISON: 11/25/2016 FINDINGS: LUNGS: Clear. PLEURA: No pneumothorax or pleural fluid seen. CARDIOVASCULAR: Normal. OSSEOUS STRUCTURES: No significant abnormalities. VISUALIZED UPPER ABDOMEN: Normal. OTHER FINDINGS: None. IMPRESSION: No active disease. CT Soft tissue neck: PROCEDURE: CT NECK WITH CONTRAST HISTORY: lt. sided neck pain and throat pain COMPARISON: None TECHNIQUE: CT of the neck with intravenous contrast. Coronal and sagittal reformats generated. Intravenous contrast dose: 100 cc of Omni 350 Radiation dose: DLP 211 mGy-cm This CT exam was performed using one or more of the following dose reduction techniques: Automated exposure control, adjustment of the mA and/or kV according to patient size, and/or use of iterative reconstruction technique. FINDINGS: NASOPHARYNX: Unremarkable. SUPRAHYOID NECK: Unremarkable oropharynx, oral cavity, parapharyngeal space and retropharyngeal space. INFRAHYOID NECK: Unremarkable larynx, hypopharynx, and supraglottic space. Vocal cords intact. MASS: None. GLANDS: Parotid and submandibular glands unremarkable. Normal size thyroid gland, without nodule. LYMPH NODES: Enlarged cervical lymph nodes are seen bilaterally. The largest node is seen in the digastric region on the left measuring 21 mm in length. CERVICAL SPINE: No fracture or focal lesion. VASCULAR STRUCTURES: Unremarkable. OTHER FINDINGS: None. IMPRESSION: No evidence of tonsillar swelling or abscess. Bilateral cervical adenopathy left greater than right CT Abdomen and pelvis: PROCEDURE: CT Abdomen and Pelvis with contrast HISTORY: Lt. sided abdominal pain/fever/diarrhea COMPARISON: None. TECHNIQUE: Contrast dose: 150 mL Omnipaque 350 Radiation dose: Total exam DLP = 805.87 mGy-cm. This CT exam was performed using one or more of the following dose reduction techniques: Automated exposure control, adjustment of the mA and/or kV according to patient size, and/or use of iterative reconstruction technique. FINDINGS: LOWER THORAX: Unremarkable. LIVER: Unremarkable. No gross lesion or ductal dilatation. GALLBLADDER AND BILE DUCTS: Unremarkable. PANCREAS: Unremarkable. No gross lesion or ductal dilatation. SPLEEN: Unremarkable. ADRENALS: Unremarkable. No mass. KIDNEYS AND URETERS: Unremarkable. No hydronephrosis. No solid mass. VASCULATURE: Unremarkable. No aortic aneurysm. BOWEL: Unremarkable. No obstruction. No gross mural thickening. APPENDIX: Normal appendix. PERITONEUM: Unremarkable. No free fluid. No free air. LYMPH NODES: Unremarkable. No enlarged lymph nodes. BLADDER: Poorly distended REPRODUCTIVE: Normal uterus. There is a mildly hyperdense structure seen in the left ovary, 1.2 cm diameter. It appears rounded in the transverse images but more band - like in the coronal images. Uncertain significance. Consider correlation with transvaginal pelvic ultrasound. BONES: No acute fracture. OTHER FINDINGS: None. IMPRESSION: 12 mm rounded hyperdense structure in the left ovary of questionable significance. Consider correlation with transvaginal pelvic ultrasound examination. The remainder of the examination is unremarkable. Transvaginal sonogram: HISTORY: Clinical presentation pain Followup abnormal CT scan. Menstrual status: LMP 08/28/2017 COMPARISON: August 29, 2017. CT abdomen and pelvis. Summary of findings on the comparison examination:12 mm rounded hyperdense structure in the left ovary of questionable significance. Consider correlation with transvaginal pelvic ultrasound examination. The remainder of the examination is unremarkable. TECHNIQUE: Transvaginal only. Real -time technique with 2D, duplex and color Doppler FINDINGS: UTERUS: Measures 3.7 x 4.6 x 6.8 cm. Normal in size and appearance. No fibroid or other mass lesion seen. ENDOMETRIUM: Measures 2.8 mm in diameter. No ultrasound findings to suggest gestational sac, fluid, debris, mass or polyp or other pathologic process within the endometrium. CERVIX: No cervical abnormality identified. RIGHT OVARY: Measures 1.8 x 2.3 x 4.1 cm. No solid mass. Normal flow. Multiple subcentimeter follicles. Septated cyst 0.9 x 1.7 x 1.8 cm corresponds to findings on recent CT scan. LEFT OVARY: Measures cm. No solid mass. Normal flow. FREE FLUID: No significant free fluid noted. OTHER FINDINGS: None. IMPRESSION: Multiple bilateral subcentimeter follicles, physiologic cyst. There is a dominant septated cyst in the right adnexa. No suspicious findings in the left adnexa correspond to recent CT findings. Household Chores: Radiologist - Medication Orders Current Medication Orders: Sodium Chloride (Sodium Chloride 0.9%) 1,000 mls @ 250 mls/hr IV .Q4H PHILLIP Last Admin: 08/29/17 16:09 Dose: 250 mls/hr eMAR Start Stop Document 08/29/17 16:09 AB (Rec: 08/29/17 16:10 [id number]) Intravenous Solution Start Date 08/29/17 Start Time 16:10 End Date 08/29/17 Discontinued Medications Acetaminophen (Tylenol 325mg Tab) 650 mg PO STAT STA Stop: 08/29/17 13:46 Last Admin: 08/29/17 14:26 Dose: 650 mg MAR Pain/Vitals Document 08/29/17 14:26 AB (Rec: 08/29/17 14:26 [id number]) Pain Reassessment Is This A Pain ReAssessment? Yes Sleep Is patient sleeping during reassessment? No Presence of Pain Presence of Pain Yes Pain Scale Used Pain Scale Used Numeric Location Left, Right or Bilateral Left Upper or Lower Lower Pain Location Body Site Abdomen Intensity 7 Scale Used Numeric Alleviating Factors Medication Dexamethasone (Decadron Inj) 10 mg IVP STAT STA Stop: 08/29/17 16:22 Last Admin: 08/29/17 16:59 Dose: 10 mg IVP Administration Document 08/29/17 16:59 AB (Rec: 08/29/17 17:01 [id number]) Charges for Administration # of IVP Administrations 1 Famotidine (Pepcid) 20 mg IVP STAT STA Stop: 08/29/17 13:44 Last Admin: 08/29/17 14:17 Dose: 20 mg IVP Administration Document 08/29/17 14:17 AB (Rec: 08/29/17 14:22 [id number]) Charges for Administration # of IVP Administrations 1 Sodium Chloride (Sodium Chloride 0.9%) 1,000 mls @ 999 mls/hr IV .Q1H1M STA Stop: 08/29/17 14:43 Last Admin: 08/29/17 14:26 Dose: 999 mls/hr eMAR Start Stop Document 08/29/17 14:26 AB (Rec: 08/29/17 14:26 [id number]) Intravenous Solution Start Date 08/29/17 Start Time 14:26 End Date 08/29/17 End time 15:26 Total Infusion Time 60 Clindamycin Phosphate 900 mg/ (Sodium Chloride) 106 mls @ 106 mls/hr IVPB STAT STA PRN Reason: Protocol Stop: 08/29/17 17:20 Last Admin: 08/29/17 17:02 Dose: 106 mls/hr eMAR Start Stop Document 08/29/17 17:02 AB (Rec: 08/29/17 17:02 [id number]) Intravenous Solution Start Date 08/29/17 Start Time 17:02 End Date 08/29/17 End time 18:02 Total Infusion Time 60 Ketorolac Tromethamine (Toradol) 30 mg IVP STAT STA Stop: 08/29/17 13:44 Last Admin: 08/29/17 14:25 Dose: 30 mg MAR Pain Assessment Document 08/29/17 14:25 AB (Rec: 08/29/17 14:26 [id number]) Pain Reassessment Is this a pain reassessment? Yes Sleep Is patient sleeping during reassessment? No Presence of Pain Presence of Pain Yes Pain Scale Used Pain Scale Used Numeric Location Left, Right or Bilateral Left Pain Location Body Site Abdomen Description Description Constant Intensity of Pain at present 7 Alleviating Factors/Management Medication Techniques IVP Administration Document 08/29/17 14:25 AB (Rec: 08/29/17 14:26 [id number]) Charges for Administration # of IVP Administrations 1 Ondansetron HCl (Zofran Inj) 4 mg IVP STAT STA Stop: 08/29/17 13:44 Last Admin: 08/29/17 14:26 Dose: 4 mg IVP Administration Document 08/29/17 14:26 AB (Rec: 08/29/17 14:26 [id number]) Charges for Administration # of IVP Administrations 1 Potassium Chloride (K-Dur 20 Meq Er Tab) 20 meq PO STAT STA Stop: 08/29/17 15:14 Last Admin: 08/29/17 15:22 Dose: 20 meq - PA / EMBROIDERER HAND / Resident Statement / has reviewed & agrees with the documentation as recorded. Disposition/Present on Arrival - Present on Arrival Any Indicators Present on Arrival: No History of DVT/PE: No History of Uncontrolled Diabetes: No Urinary Catheter: No History of Decub. Ulcer: No History Surgical Site Infection Following: None - Disposition Have Diagnosis and Disposition been Completed?: Yes Diagnosis: Hypokalemia, Tonsillitis, Lymphadenopathy Disposition: HOME/ ROUTINE Disposition Time: 18:58 Patient Plan: Discharge Patient Problems: Current Active Problems Problem Status Onset Hypokalemia Acute Lymphadenopathy Acute Tonsillitis Acute Condition: IMPROVED Additional Instructions: -Discharge home with augmentin, pepcid, motrin, zofran, stay hydrated, bed rest , follow up with your own pmd and ENT/Obgyn/GI within 2 days, return to the Emergency room for any new or worsening signs or symptoms. Prescriptions: Amoxicillin/Clavulanate [Augmentin 875 MG-125 MG] 1 tab PO BID #20 tab Famotidine [Pepcid] 20 mg PO BID #20 tab Ibuprofen [Motrin Tab] 600 mg PO QID PRN #26 tab PRN Reason: Other Ondansetron [Zofran] 4 mg PO Q8H PRN #10 tab PRN Reason: Nausea/Vomiting Referrals: PCP,[place] [Primary Care Provider] - Follow up with primary Karina Tello MD [Staff Provider] - Follow up with primary Errol Menjivar MD [Staff Provider] - Follow up with primary Kolton Arellano DO [Doctor Osteopathy] - Follow up with primary Forms: WORK NOTE
[2017-08-29] MEDS ORDERED: Sodium Chloride 0.9% 1,000 ML IV STA (13:43)
[2017-08-29 14:39] LABS: VENOUS BLOOD PH 7.38 (7.32-7.43)
[2017-08-29 14:48] LABS: ALB/GLOB RATIO 1.2 (1.1-1.8); ALKALINE PHOSPHATASE 61 U/L (38-126); ALT/SGPT 30 U/L (7-56); AST/SGOT 33 U/L (14-36); BILIRUBIN,TOTAL 0.7 mg/dL (0.2-1.3); BLOOD UREA NITROGEN 10 mg/dL (7-21); CALCIUM 9.4 mg/dL (8.4-10.5); CARBON DIOXIDE 28 mmol/L (21-33); CHLORIDE 102 mmol/L (98-107); GFR AFRICAN-AMERICAN > 60; GLUCOSE,RANDOM 91 mg/dL (70-110); LIPASE 23 U/L (23-300); POTASSIUM 3.4 mmol/L (3.6-5.0); SODIUM 141 mmol/L (132-148); TOTAL PROTEIN 8.1 g/dL (5.8-8.3)
[2017-08-29 15:00] LABS: BASO # 0.01 K/mm3 (0.0-2.0); BASO % 0.1 % (0.0-3.0); EOS % 0.1 % (1.5-5.0); GRAN # 9.02 (1.4-6.5); GRAN % 79.2 % (50.0-68.0); HEMATOCRIT 34.6 % (36.0-48.0); LYMPH # 1.2 (1.2-3.4); LYMPH % 10.4 % (22.0-35.0); MEAN CELL VOLUME 86.3 fl (80.0-105.0); MEAN CORPUSCULAR HEMOGLOBIN 28.2 pg (25.0-35.0); MEAN CORPUSCULAR HGB CONC 32.7 g/dl (31.0-37.0); MEAN PLATELET VOLUME 10.2 fl (7.0-11.0); MONO # 1.2 (0.1-0.6); MONO % 10.2 % (1.0-6.0); RED CELL DISTRIBUTION WIDTH 14.2 % (11.5-14.5); WHITE BLOOD COUNT 11.4 10^3/ul (4.5-11.0)
[2017-08-29] MEDS ORDERED: Potassium Chloride 20 mEq ER Tab PO STA (15:13)
[2017-08-29] MEDS ORDERED: Sodium Chloride 0.9% 1,000 ML IV SCH (15:15)
--- NOTE | 2017-08-29 16:02 | CT ---
PROCEDURE: CT Abdomen and Pelvis with contrast HISTORY: Lt. sided abdominal pain/fever/diarrhea COMPARISON: None. TECHNIQUE: Contrast dose: 150 mL Omnipaque 350 Radiation dose: Total exam DLP = 805.87 mGy-cm. This CT exam was performed using one or more of the following dose reduction techniques: Automated exposure control, adjustment of the mA and/or kV according to patient size, and/or use of iterative reconstruction technique. FINDINGS: LOWER THORAX: Unremarkable. LIVER: Unremarkable. No gross lesion or ductal dilatation. GALLBLADDER AND BILE DUCTS: Unremarkable. PANCREAS: Unremarkable. No gross lesion or ductal dilatation. SPLEEN: Unremarkable. ADRENALS: Unremarkable. No mass. KIDNEYS AND URETERS: Unremarkable. No hydronephrosis. No solid mass. VASCULATURE: Unremarkable. No aortic aneurysm. BOWEL: Unremarkable. No obstruction. No gross mural thickening. APPENDIX: Normal appendix. PERITONEUM: Unremarkable. No free fluid. No free air. LYMPH NODES: Unremarkable. No enlarged lymph nodes. BLADDER: Poorly distended REPRODUCTIVE: Normal uterus. There is a mildly hyperdense structure seen in the left ovary, 1.2 cm diameter. It appears rounded in the transverse images but more band -like in the coronal images. Uncertain significance. Consider correlation with transvaginal pelvic ultrasound. BONES: No acute fracture. OTHER FINDINGS: None. IMPRESSION: 12 mm rounded hyperdense structure in the left ovary of questionable significance. Consider correlation with transvaginal pelvic ultrasound examination. The remainder of the examination is unremarkable.
--- NOTE | 2017-08-29 16:05 | RAD ---
PROCEDURE: CHEST RADIOGRAPH, 1 VIEW HISTORY: medical clearance COMPARISON: 11/25/2016 FINDINGS: LUNGS: Clear. PLEURA: No pneumothorax or pleural fluid seen. CARDIOVASCULAR: Normal. OSSEOUS STRUCTURES: No significant abnormalities. VISUALIZED UPPER ABDOMEN: Normal. OTHER FINDINGS: None. IMPRESSION: No active disease.
--- NOTE | 2017-08-29 16:14 | CT ---
PROCEDURE: CT NECK WITH CONTRAST HISTORY: lt. sided neck pain and throat pain COMPARISON: None TECHNIQUE: CT of the neck with intravenous contrast. Coronal and sagittal reformats generated. Intravenous contrast dose: 100 cc of Omni 350 Radiation dose: DLP 211 mGy-cm This CT exam was performed using one or more of the following dose reduction techniques: Automated exposure control, adjustment of the mA and/or kV according to patient size, and/or use of iterative reconstruction technique. FINDINGS: NASOPHARYNX: Unremarkable. SUPRAHYOID NECK: Unremarkable oropharynx, oral cavity, parapharyngeal space and retropharyngeal space. INFRAHYOID NECK: Unremarkable larynx, hypopharynx, and supraglottic space. Vocal cords intact. MASS: None. GLANDS: Parotid and submandibular glands unremarkable. Normal size thyroid gland, without nodule. LYMPH NODES: Enlarged cervical lymph nodes are seen bilaterally. The largest node is seen in the digastric region on the left measuring 21 mm in length. CERVICAL SPINE: No fracture or focal lesion. VASCULAR STRUCTURES: Unremarkable. OTHER FINDINGS: None. IMPRESSION: No evidence of tonsillar swelling or abscess. Bilateral cervical adenopathy left greater than right
[2017-08-29 16:24] LABS: PH,URINE 6.5 (4.7-8.0); URINE BILIRUBIN MODERATE (NEGATIVE); URINE BLOOD LARGE (NEGATIVE); URINE GLUCOSE (UA) NEGATIVE (NEGATIVE); URINE KETONE >=80 mg/dL (NEGATIVE); URINE LEUKOCYTE ESTERASE TRACE Leu/uL (NEGATIVE); URINE PROTEIN 100 mg/dL (<30 mg/dL)
[2017-08-29 16:25] LABS: URINE APPEARANCE TURBID (CLEAR); URINE COLOR YELLOW (YELLOW)
[2017-08-29 16:27] LABS: URINE BACTERIA TRACE (NEG); URINE RBC TNTC /hpf (0-2); URINE WBC 0 - 2 /hpf (0-6)
[2017-08-29 18:34] VITALS: RESP 16; TEMP 98.8; O2SAT 100
--- NOTE | 2017-08-29 18:51 | US ---
HISTORY: Clinical presentation pain Followup abnormal CT scan. Menstrual status: LMP 08/28/2017 COMPARISON: August 29, 2017. CT abdomen and pelvis. Summary of findings on the comparison examination:12 mm rounded hyperdense structure in the left ovary of questionable significance. Consider correlation with transvaginal pelvic ultrasound examination. The remainder of the examination is unremarkable. TECHNIQUE: Transvaginal only. Real -time technique with 2D, duplex and color Doppler FINDINGS: UTERUS: Measures 3.7 x 4.6 x 6.8 cm. Normal in size and appearance. No fibroid or other mass lesion seen. ENDOMETRIUM: Measures 2.8 mm in diameter. No ultrasound findings to suggest gestational sac, fluid, debris, mass or polyp or other pathologic process within the endometrium. CERVIX: No cervical abnormality identified. RIGHT OVARY: Measures 1.8 x 2.3 x 4.1 cm. No solid mass. Normal flow. Multiple subcentimeter follicles. Septated cyst 0.9 x 1.7 x 1.8 cm corresponds to findings on recent CT scan. LEFT OVARY: Measures cm. No solid mass. Normal flow. FREE FLUID: No significant free fluid noted. OTHER FINDINGS: None. IMPRESSION: Multiple bilateral subcentimeter follicles, physiologic cyst. There is a dominant septated cyst in the right adnexa. No suspicious findings in the left adnexa correspond to recent CT findings.
[2017-08-29 20:10] VITALS: BP 114/52; PULSE 80
== END 2017-08-29 20:20 | disposition home or self-care (01) ==
LOC: ED 13:08
DX: E87.6 Hypokalemia (principal); J03.90 Acute tonsillitis, unspecified; R59.1 Generalized enlarged lymph nodes
CPT/HCPCS: 70491; 71010; 74177; 76830; 80053; 81001; 82803; 83690; 85025; 87070; 87086; 87430; 87804; 96361; 96365; 96375; 99284; J1100; J1885; J2405; J7040; Q9967

== ENCOUNTER 2017-08-30 23:53 | Emergency (ER) | payer OTHER ==
[2017-08-30 23:53] VITALS: BMI 25.7
[2017-08-31] MEDS ORDERED: Sodium Chloride 0.9% 1,000 ML IV STA (00:50)
--- NOTE | 2017-08-31 00:59 | ED PDOC ---
Arrival/HPI - General Chief Complaint: ENT Problem Time Seen by Provider: 08/31/17 00:40 Historian: Patient - History of Present Illness Narrative History of Present Illness (Text): 08/31/17 00:59 A 27 year old female presents to the emergency department complaining of throat pain, tongue swelling, vomiting and abdominal pain. Patient was seen yesterday in the emergency department for similar symptoms. Patient hasn't eaten all day, is unable to take medicines and has trouble speaking. Denies any other complaints at this time. Symptom Onset: Sudden Symptom Course: Unchanged Activities at Onset: Rest Context: Home Past Medical History - Provider Review Nursing Documentation Reviewed: Yes - Infectious Disease Hx of Infectious Diseases: None - Tetanus Immunization Tetanus Immunization: Unknown - Past Medical History Past Medical History: No Previous - Cardiac Hx Cardiac Disorders: No - Pulmonary Hx Respiratory Disorders: No - Neurological Hx Neurological Disorder: No Hx Vertigo: Yes - HEENT Hx HEENT Disorder: No - Renal Hx Renal Disorder: No - Endocrine/Metabolic Hx Endocrine Disorders: No - Hematological/Oncological Hx Blood Disorders: Yes Hx Anemia: Yes - Integumentary Hx Dermatological Disorder: No - Musculoskeletal/Rheumatological Hx Musculoskeletal Disorders: No - Gastrointestinal Hx Gastrointestinal Disorders: No - Genitourinary/Gynecological Hx Genitourinary Disorders: No - Psychiatric Hx Psychophysiologic Disorder: No Hx Substance Use: Yes (marijuana-quit March 10, 2017) - Past Surgical History Past Surgical History: No Previous - Surgical History Hx Orthopedic Surgery: Yes (/l knee meniscus) - Anesthesia Hx Anesthesia: Yes Hx Anesthesia Reactions: No Hx Malignant Hyperthermia: No - Suicidal Assessment Feels Threatened In Home Enviroment: No Family/Social History - Physician Review Nursing Documentation Reviewed: Yes Family/Social History: No Known Family HX Smoking Status: Former Smoker Hx Alcohol Use: Yes Hx Substance Use: Yes (marijuana-quit March 10, 2017) Substance used: Marijuana Hx Substance Use Treatment: No Allergies/Home Meds Allergies/Adverse Reactions: Allergies No Known Allergies Allergy (Verified 08/31/17 00:43) Review of Systems - Physician Review All systems were reviewed & negative as marked: Yes - Review of Systems ENT: Other (tongue swelling, throat pain) Gastrointestinal: Abdominal Pain, Vomiting Physical Exam Vital Signs Reviewed: Yes Vital Signs Temp Pulse Resp BP Pulse Ox 08/31/17 02:17 80 20 112/72 98 08/31/17 00:30 98.8 F 80 20 110/75 98 Appearance: Positive for: Well-Appearing, Non-Toxic, Comfortable Pain Distress: None Mental Status: Positive for: Alert and Oriented X 3 - Systems Exam Head: Present: Atraumatic, Normocephalic Pupils: Present: PERRL Extroacular Muscles: Present: EOMI Conjunctiva: Present: Normal Mouth: Present: Moist Mucous Membranes Pharnyx: Present: ERYTHEMA Neck: Present: Normal Range of Motion Respiratory/Chest: Present: Clear to Auscultation, Good Air Exchange. No: Respiratory Distress, Accessory Muscle Use Cardiovascular: Present: Regular Rate and Rhythm, Normal S1, S2. No: Murmurs Abdomen: Present: Normal Bowel Sounds. No: Tenderness, Distention, Peritoneal Signs Back: Present: Normal Inspection Upper Extremity: Present: Normal Inspection. No: Cyanosis, Edema Lower Extremity: Present: Normal Inspection. No: Edema Neurological: Present: GCS=15, CN II-XII Intact, Speech Normal Skin: Present: Warm, Dry, Normal Color. 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 Plan: -- labs -- Urinalysis -- IV fluids, Decadron, Zofran -- Reassess and disposition Prior Visits: Notes and results from previous visits were reviewed. Patient was last seen in the emergency department on 08/29/17 for evaluation of fever, cough, throat pain , abdominal pain and diarrhea. Progress Notes: 08/31/17 01:52 On reevaluation, patient feels better, in no acute distress. Patient is refusing repeat CT. Patient is requesting to be discharged home. Leaving Against Medical Advice (AMA): The patient is choosing to leave against medical advice. I have personally explained to the patient that choosing to do so may result in permanent bodily harm or . I have discussed at great length that without further evaluation and monitoring there may be unforeseen circumstances and/or deterioration causing permanent bodily harm or as a result of their choice. The patient is alert, oriented, and shows the mental capacity to make clear decisions regarding the patients health care at this time. The patient continues to wish to leave against medical advice. The patient has been advised that they should return to the emergency room immediately if they change their mind at any time, or if their condition begins to change or worsen in any way. 08/31/17 04:15 p - Lab Interpretations Lab Results: 08/31/17 01:13 08/31/17 01:13 Lab Results 08/31/17 01:13: Sodium 141, Potassium 3.9, Chloride 104, Carbon Dioxide 26, Anion Gap 15, BUN 11, Creatinine 0.7, Est GFR ( Amer) > 60, Est GFR (Non- Af Amer) > 60, Random Glucose 80, Calcium 9.1, Total Bilirubin 0.6, AST 31, ALT 23, Alkaline Phosphatase 55, Total Protein 7.8, Albumin 4.3, Globulin 3.5, Albumin/Globulin Ratio 1.2 08/31/17 01:13: WBC 9.0 D, RBC 4.04, Hgb 11.5 L, Hct 35.2 L, MCV 87.1, MCH 28.5 , MCHC 32.7, RDW 14.4, Plt Count 243, MPV 10.4, Gran % 68.9 H, Lymph % (Auto) 22.4, [place] % (Auto) 7.9 H, Eos % (Auto) 0.2 L, Baso % (Auto) 0.6, Gran # 6.17, Lymph # 2.0, [place] # 0.7 H, Eos # 0.0, Baso # 0.05 I have reviewed the lab results: Yes - Medication Orders Current Medication Orders: Discontinued Medications Dexamethasone (Decadron Inj) 10 mg IVP STAT STA Stop: 08/31/17 00:49 Last Admin: 08/31/17 01:29 Dose: 10 mg IVP Administration Document 08/31/17 01:29 SS (Rec: 08/31/17 01:29 [id number] Charges for Administration # of IVP Administrations 1 Sodium Chloride (Sodium Chloride 0.9%) 1,000 mls @ 999 mls/hr IV .Q1H1M STA Stop: 08/31/17 01:50 Last Admin: 08/31/17 01:29 Dose: 999 mls/hr eMAR Start Stop Document 08/31/17 01:29 SS (Rec: 08/31/17 01:29 SS [id number]) Intravenous Solution Start Date 08/31/17 Start Time 01:29 End Date 08/31/17 End time 02:29 Total Infusion Time 60 Ondansetron HCl (Zofran Inj) 4 mg IVP STAT STA Stop: 08/31/17 00:53 Last Admin: 08/31/17 01:28 Dose: 4 mg IVP Administration Document 08/31/17 01:28 SS (Rec: 08/31/17 01:29 SS [id number]) Charges for Administration # of IVP Administrations 1 - Scribe Statement The provider has reviewed the documentation as recorded by the Yajaira Melendez Provider Scribe Attestation: All medical record entries made by the Scribe were at my direction and personally dictated by me. I have reviewed the chart and agree that the record accurately reflects my personal performance of the history, physical exam, medical decision making, and the department course for this patient. I have also personally directed, reviewed, and agree with the discharge instructions and disposition. Disposition/Present on Arrival - Present on Arrival Any Indicators Present on Arrival: No History of DVT/PE: No History of Uncontrolled Diabetes: No Urinary Catheter: No History of Decub. Ulcer: No History Surgical Site Infection Following: None - Disposition Have Diagnosis and Disposition been Completed?: Yes Diagnosis: Pharyngitis Disposition: AGAINST MEDICAL ADVICE Disposition Time: 03:00 Condition: UNKNOWN Discharge Instructions (ExitCare): Pharyngitis (ED) Additional Instructions: return to er with worsening symptoms or concerns. please follow up with your doctor. you are declining ct imaging. you are able to return to er with any concern at any point Prescriptions: Prednisone 50 mg PO DAILY #5 tablet Referrals: [facility] [Outside] - Follow up with primary [facility] [Outside] - Follow up with primary Forms: [employer] (Portuguese)
[2017-08-31 01:29] LABS: BASO # 0.05 K/mm3 (0.0-2.0); BASO % 0.6 % (0.0-3.0); EOS % 0.2 % (1.5-5.0); GRAN # 6.17 (1.4-6.5); GRAN % 68.9 % (50.0-68.0); HEMATOCRIT 35.2 % (36.0-48.0); LYMPH % 22.4 % (22.0-35.0); MEAN CELL VOLUME 87.1 fl (80.0-105.0); MEAN CORPUSCULAR HEMOGLOBIN 28.5 pg (25.0-35.0); MEAN CORPUSCULAR HGB CONC 32.7 g/dl (31.0-37.0); MEAN PLATELET VOLUME 10.4 fl (7.0-11.0); MONO # 0.7 (0.1-0.6); MONO % 7.9 % (1.0-6.0); RED CELL DISTRIBUTION WIDTH 14.4 % (11.5-14.5)
[2017-08-31 01:45] LABS: ALB/GLOB RATIO 1.2 (1.1-1.8); ALKALINE PHOSPHATASE 55 U/L (38-126); ALT/SGPT 23 U/L (7-56); AST/SGOT 31 U/L (14-36); BILIRUBIN,TOTAL 0.6 mg/dL (0.2-1.3); BLOOD UREA NITROGEN 11 mg/dL (7-21); CALCIUM 9.1 mg/dL (8.4-10.5); CARBON DIOXIDE 26 mmol/L (21-33); CHLORIDE 104 mmol/L (98-107); GFR AFRICAN-AMERICAN > 60; GLUCOSE,RANDOM 80 mg/dL (70-110); POTASSIUM 3.9 mmol/L (3.6-5.0); SODIUM 141 mmol/L (132-148); TOTAL PROTEIN 7.8 g/dL (5.8-8.3)
[2017-08-31 02:08] VITALS: PULSE 80; RESP 20; TEMP 98.8; O2SAT 98
[2017-08-31 02:17] VITALS: BP 112/72
== END 2017-08-31 02:18 | disposition left against medical advice (07) ==
LOC: ED 23:53
DX: J02.9 Acute pharyngitis, unspecified (principal)
CPT/HCPCS: 80053; 85025; 86308; 96361; 96374; 96375; 99283; J1100; J2405; J7040

== ENCOUNTER 2018-03-13 20:41 | Emergency (ER) | payer BC ==
--- NOTE | 2018-03-13 21:14 | ED PDOC ---
Arrival/HPI - General Time Seen by Provider: 03/13/18 21:07 Historian: Patient - History of Present Illness Narrative History of Present Illness (Text): 03/13/18 21:13 A 27 year old female, with no significant past medical history, presents to the emergency department complaining of Symptom Onset: Gradual Symptom Course: Unchanged Activities at Onset: Light Context: Home Past Medical History - Provider Review Nursing Documentation Reviewed: Yes - Infectious Disease Hx of Infectious Diseases: None - Tetanus Immunization Tetanus Immunization: Unknown - Past Medical History Past Medical History: No Previous - Cardiac Hx Cardiac Disorders: No - Pulmonary Hx Respiratory Disorders: No - Neurological Hx Neurological Disorder: No Hx Vertigo: Yes - HEENT Hx HEENT Disorder: No - Renal Hx Renal Disorder: No - Endocrine/Metabolic Hx Endocrine Disorders: No - Hematological/Oncological Hx Blood Disorders: Yes Hx Anemia: Yes - Integumentary Hx Dermatological Disorder: No - Musculoskeletal/Rheumatological Hx Musculoskeletal Disorders: No - Gastrointestinal Hx Gastrointestinal Disorders: No - Genitourinary/Gynecological Hx Genitourinary Disorders: No - Psychiatric Hx Psychophysiologic Disorder: No Hx Substance Use: Yes (marijuana-quit March 10, 2017) - Past Surgical History Past Surgical History: No Previous - Surgical History Hx Orthopedic Surgery: Yes (/l knee meniscus) - Anesthesia Hx Anesthesia: Yes Hx Anesthesia Reactions: No Hx Malignant Hyperthermia: No - Suicidal Assessment Feels Threatened In Home Enviroment: No Family/Social History - Physician Review Nursing Documentation Reviewed: Yes Family/Social History: No Known Family HX Smoking Status: Former Smoker Hx Alcohol Use: Yes Hx Substance Use: Yes (marijuana-quit March 10, 2017) Substance used: Marijuana Hx Substance Use Treatment: No Allergies/Home Meds Allergies/Adverse Reactions: Allergies No Known Allergies Allergy (Verified 08/31/17 00:43) Review of Systems - Physician Review All systems were reviewed & negative as marked: Yes - Review of Systems Constitutional: absent: Fevers, Other (Chills) Respiratory: absent: SOB Cardiovascular: absent: Chest Pain Gastrointestinal: absent: Diarrhea, Nausea, Vomiting Genitourinary Female: absent: Dysuria, Frequency, Hematuria Musculoskeletal: absent: Back Pain, Neck Pain Neurological: absent: Headache, Dizziness Physical Exam Vital Signs Reviewed: Yes Appearance: Positive for: Well-Appearing, Non-Toxic, Comfortable Pain Distress: None Mental Status: Positive for: Alert and Oriented X 3 - Systems Exam Head: Present: Atraumatic, Normocephalic Pupils: Present: PERRL Extroacular Muscles: Present: EOMI Conjunctiva: Present: Normal Mouth: Present: Moist Mucous Membranes Neck: Present: Normal Range of Motion Respiratory/Chest: Present: Clear to Auscultation, Good Air Exchange. No: Respiratory Distress, Accessory Muscle Use Cardiovascular: Present: Regular Rate and Rhythm, Normal S1, S2. No: Murmurs Abdomen: No: Tenderness, Distention, Peritoneal Signs Back: Present: Normal Inspection Upper Extremity: Present: Normal Inspection. No: Cyanosis, Edema Lower Extremity: Present: Normal Inspection. No: Edema Neurological: Present: GCS=15, CN II-XII Intact, Speech Normal Skin: Present: Warm, Dry, Normal Color. No: Rashes Psychiatric: Present: Alert, Oriented x 3, Normal Insight, Normal Concentration Medical Decision Making ED Course and Treatment: 03/13/18 21:14 Impression: 27 year old female presents complaining Plan: -- Reassess and disposition Prior Visits: Notes and results from previous visits were reviewed. Patient was last seen in the emergency department on 08/31/17 presents complaining of throat pain, tongue swelling, vomiting and abdominal pain. Patient left against medical advice. Progress Notes: - Scribe Statement The provider has reviewed the documentation as recorded by the Yajaira Theodore Provider Scribe Attestation: All medical record entries made by the Scribpetra were at my direction and personally dictated by me. I have reviewed the chart and agree that the record accurately reflects my personal performance of the history, physical exam, medical decision making, and the department course for this patient. I have also personally directed, reviewed, and agree with the discharge instructions and disposition. Disposition/Present on Arrival - Present on Arrival History of DVT/PE: No History of Uncontrolled Diabetes: No Urinary Catheter: No History Surgical Site Infection Following: None - Disposition
[2018-03-13 21:30] VITALS: BMI 21.1
--- NOTE | 2018-03-13 22:14 | ED PDOC ---
Arrival/HPI - General Time Seen by Provider: 03/13/18 21:07 Historian: Patient - History of Present Illness Narrative History of Present Illness (Text): 03/13/18 22:08 A 27 year old female, whose past medical history include vertigo and anemia, presents to the emergency department complaining of worsening intermittent epigastric pain that began 3 days ago. Patient reports she stopped eating meat 5 -6 months ago when the pain began. Patient reports when she brushes her teeth in the morning she begins feeling nauseous and vomits. She does not know what it could be and denies any possible chance of being . Patient denies any fever, chills, chest pain, shortness of breath, diarrhea, urinary symptoms, back pain, neck pain, headache, dizziness, or any other complaints. PMD: Dr. Khoury Time/Duration: Other (3 days) Symptom Onset: Gradual Symptom Course: Worsening Activities at Onset: Light Context: Home Past Medical History - Provider Review Nursing Documentation Reviewed: Yes - Infectious Disease Hx of Infectious Diseases: None - Tetanus Immunization Tetanus Immunization: Unknown - Past Medical History Past Medical History: No Previous - Cardiac Hx Cardiac Disorders: No - Pulmonary Hx Respiratory Disorders: No - Neurological Hx Neurological Disorder: No Hx Vertigo: Yes - HEENT Hx HEENT Disorder: No - Renal Hx Renal Disorder: No - Endocrine/Metabolic Hx Endocrine Disorders: No - Hematological/Oncological Hx Blood Disorders: Yes Hx Anemia: Yes - Integumentary Hx Dermatological Disorder: No - Musculoskeletal/Rheumatological Hx Musculoskeletal Disorders: No - Gastrointestinal Hx Gastrointestinal Disorders: No - Genitourinary/Gynecological Hx Genitourinary Disorders: No - Psychiatric Hx Psychophysiologic Disorder: No Hx Substance Use: Yes (marijuana-quit March 10, 2017) - Past Surgical History Past Surgical History: No Previous - Surgical History Hx Orthopedic Surgery: Yes (/l knee meniscus) - Anesthesia Hx Anesthesia: Yes Hx Anesthesia Reactions: No Hx Malignant Hyperthermia: No - Suicidal Assessment Feels Threatened In Home Enviroment: No Family/Social History - Physician Review Nursing Documentation Reviewed: Yes Family/Social History: No Known Family HX Smoking Status: Former Smoker Hx Alcohol Use: Yes Hx Substance Use: Yes (marijuana-quit March 10, 2017) Substance used: Marijuana Hx Substance Use Treatment: No Allergies/Home Meds Allergies/Adverse Reactions: Allergies No Known Allergies Allergy (Verified 03/13/18 21:24) Review of Systems - Physician Review All systems were reviewed & negative as marked: Yes - Review of Systems Constitutional: absent: Fevers, Other (Chills) Respiratory: absent: SOB Cardiovascular: absent: Chest Pain Gastrointestinal: Abdominal Pain, Nausea, Vomiting. absent: Diarrhea Genitourinary Female: absent: Dysuria, Frequency, Hematuria Musculoskeletal: absent: Back Pain, Neck Pain Neurological: absent: Headache, Dizziness Physical Exam Vital Signs Reviewed: Yes Temperature: Afebrile Blood Pressure: Normal Pulse: Regular Respiratory Rate: Normal Appearance: Positive for: Well-Appearing, Non-Toxic, Comfortable Pain Distress: None Mental Status: Positive for: Alert and Oriented X 3 - Systems Exam Head: Present: Atraumatic, Normocephalic Pupils: Present: PERRL Extroacular Muscles: Present: EOMI Conjunctiva: Present: Normal Mouth: Present: Moist Mucous Membranes Neck: Present: Normal Range of Motion Respiratory/Chest: Present: Clear to Auscultation, Good Air Exchange. No: Respiratory Distress, Accessory Muscle Use Cardiovascular: Present: Regular Rate and Rhythm, Normal S1, S2. No: Murmurs Abdomen: No: Tenderness, Distention, Peritoneal Signs Back: Present: Normal Inspection Upper Extremity: Present: Normal Inspection. No: Cyanosis, Edema Lower Extremity: Present: Normal Inspection. No: Edema Neurological: Present: GCS=15, CN II-XII Intact, Speech Normal Skin: Present: Warm, Dry, Normal Color. No: Rashes Psychiatric: Present: Alert, Oriented x 3, Normal Insight, Normal Concentration Medical Decision Making ED Course and Treatment: 03/13/18 22:07 Impression: 27 year old female presents complaining worsening intermittent epigastric pain that began 3 days ago associated with nausea and vomiting in the morning. Patient had this pain for the past 5-6 months after she stopped eating meat. Plan: -- Labs -- Urine test -- Urinalysis -- CT Abd & pelvis w/ IV Contrast -- Reassess and disposition Prior Visits: Notes and results from previous visits were reviewed. Patient was last seen in the emergency department on 08/31/17 presents complaining of throat pain, tongue swelling, vomiting and abdominal pain. Patient left against medical advice. Progress Notes: EXAM: CT Abdomen and Pelvis With Intravenous Contrast Dictated and Authenticated by: Gregorio Jasmine MD 03/14/2018 3:55 AM IMPRESSION: 1. Involuting or ruptured LEFT ovarian follicle/cyst. 03/14/18 04:09 On re-evaluation, patient feels better and is in no acute distress. I have discussed the results and plan with the patient, who expresses understanding. Patient in agreement with plan to be discharged home. Patient is stable for discharge. Patient was instructed to follow up with physician or return if symptoms worsen or new concerning symptoms arise. - Lab Interpretations Lab Results: 03/13/18 23:00 03/13/18 23:00 Lab Results 03/14/18 01:19: Blood Type Confirm O POSITIVE 03/13/18 23:16: Blood Type O POSITIVE, Antibody Screen Negative, BBK History Checked No verified bt 03/13/18 23:00: Sodium 141, Potassium 3.5 L, Chloride 107, Carbon Dioxide 25, Anion Gap 12, BUN 10, Creatinine 0.6 L, Est GFR ( Amer) > 60, Est GFR ( Non-Af Amer) > 60, Random Glucose 98, Calcium 9.1, Total Bilirubin 0.1 L, AST 22 , ALT 26, Alkaline Phosphatase 67, Total Protein 6.6, Albumin 3.7, Globulin 2.9 , Albumin/Globulin Ratio 1.3, Lipase 75 03/13/18 23:00: PT 13.1 H, INR 1.15 H 03/13/18 23:00: WBC 13.1 H D, RBC 3.64, Hgb 10.5 L, Hct 31.9 L, MCV 87.6, MCH 28.8, MCHC 32.9, RDW 13.8, Plt Count 268, MPV 9.7, Gran % 66.6, Lymph % (Auto) 25.2, [place] % (Auto) 6.0, Eos % (Auto) 2.0, Baso % (Auto) 0.2, Gran # 8.73 H, Lymph # (Auto) 3.3, [place] # (Auto) 0.8 H, Eos # (Auto) 0.3, Baso # (Auto) 0.02 03/13/18 22:14: Urine Color Yellow, Urine Appearance Clear, Urine pH 6.0, Ur Specific [place] 1.025, Urine Protein Negative, Urine Glucose (UA) Negative, Urine Ketones Negative, Urine Blood Large H, Urine Nitrate Negative, Urine Bilirubin Negative, Urine Urobilinogen 0.2, Ur Leukocyte Esterase Trace H, Urine RBC 2 - 5, Urine WBC 2 - 5, Ur Epithelial Cells 1 - 3, Urine Bacteria Small I have reviewed the lab results: Yes - RAD Interpretation Radiology Orders: 03/14/18 00:18 ABD PELVIS PO & IV CONTRAST [CT] Stat - Scribe Statement The provider has reviewed the documentation as recorded by the Davonibpetra Theodore Provider Scribe Attestation: All medical record entries made by the Scribe were at my direction and personally dictated by me. I have reviewed the chart and agree that the record accurately reflects my personal performance of the history, physical exam, medical decision making, and the department course for this patient. I have also personally directed, reviewed, and agree with the discharge instructions and disposition. Disposition/Present on Arrival - Present on Arrival Any Indicators Present on Arrival: No History of DVT/PE: No History of Uncontrolled Diabetes: No Urinary Catheter: No History Surgical Site Infection Following: None - Disposition Have Diagnosis and Disposition been Completed?: Yes Diagnosis: Ruptured ovarian cyst Disposition: HOME/ ROUTINE Disposition Time: 04:01 Patient Plan: Discharge Patient Problems: Current Active Problems Problem Status Onset Ruptured ovarian cyst Acute Condition: GOOD Discharge Instructions (ExitCare): Ovarian Cysts, Ovarian Cyst (DC) Additional Instructions: Taty- It was a pleasure to meet you. Please follow up with your record searcher. If you do not have one, you could call [facility]. [phone]. Return to us if any problems. The pain should be less and less each day and completely gone within a week. Best- Dr. Ash Fitzpatrick Prescriptions: Ibuprofen [Motrin Tab] 800 mg PO TID #30 tab Ondansetron ODT [Zofran ODT] 8 mg PO TID #30 odt Referrals: Denny Khoury DO [Primary Care Provider] - Follow up with primary Karina Tello MD [Staff Provider] - Follow up with primary Forms: SCHOOL NOTE, WORK NOTE
[2018-03-13 23:06] LABS: URINE BILIRUBIN NEGATIVE (NEGATIVE); URINE BLOOD LARGE (NEGATIVE); URINE GLUCOSE (UA) NEGATIVE (NEGATIVE); URINE LEUKOCYTE ESTERASE TRACE Leu/uL (NEGATIVE); URINE PROTEIN NEGATIVE mg/dL (<30 mg/dL); URINE UROBILINOGEN 0.2 E.U./dL (<1 E.U./dL)
[2018-03-13 23:08] LABS: URINE APPEARANCE CLEAR (CLEAR); URINE COLOR YELLOW (YELLOW)
[2018-03-13 23:12] LABS: BASO # 0.02 K/mm3 (0.0-2.0); BASO % 0.2 % (0.0-3.0); EOS # 0.3 (0.0-0.7); GRAN # 8.73 (1.4-6.5); GRAN % 66.6 % (50.0-68.0); HEMOGLOBIN 10.5 g/dL (12.0-16.0); LYMPH # 3.3 (1.2-3.4); LYMPH % 25.2 % (22.0-35.0); MEAN CELL VOLUME 87.6 fl (80.0-105.0); MEAN CORPUSCULAR HEMOGLOBIN 28.8 pg (25.0-35.0); MEAN CORPUSCULAR HGB CONC 32.9 g/dl (31.0-37.0); MEAN PLATELET VOLUME 9.7 fl (7.0-11.0); MONO # 0.8 (0.1-0.6); RBC 3.64 10^6/uL (3.5-6.1); RED CELL DISTRIBUTION WIDTH 13.8 % (11.5-14.5); WHITE BLOOD COUNT 13.1 10^3/ul (4.5-11.0)
[2018-03-13 23:22] LABS: ALB/GLOB RATIO 1.3 (1.1-1.8); ALBUMIN 3.7 g/dL (3.0-4.8); ALT/SGPT 26 U/L (7-56); AST/SGOT 22 U/L (14-36); BLOOD UREA NITROGEN 10 mg/dL (7-21); CALCIUM 9.1 mg/dL (8.4-10.5); GFR AFRICAN-AMERICAN > 60; GFR NON-AFRICAN AMERICAN > 60; LIPASE 75 U/L (23-300)
[2018-03-13 23:40] LABS: INR 1.15 (0.93-1.08); PROTHROMBIN TIME 13.1 SECONDS (9.4-12.5)
[2018-03-13 23:43] LABS: URINE BACTERIA SMALL (NEG)
[2018-03-14] MEDS ORDERED: Iohexol 350 MG/100 ML VIAL ONE (00:34)
[2018-03-14] MEDS ORDERED: Iohexol 240 (50 ml) ONE (00:34)
--- NOTE | 2018-03-14 03:56 | CT ---
EXAM: CT Abdomen and Pelvis With Intravenous Contrast CLINICAL HISTORY: 27 years old, female; Pain; Abdominal pain; Generalized; Additional info: Leukocytosis and abdominal pain TECHNIQUE: Axial computed tomography images of the abdomen and pelvis with intravenous contrast. All CT scans at this facility use one or more dose reduction techniques, viz.: automated exposure control; ma/kV adjustment per patient size (including targeted exams where dose is matched to indication; i.e. head); or iterative reconstruction technique. Coronal and sagittal reformatted images were created and reviewed. CONTRAST: 96 mL of OMNI 350 administered intravenously. COMPARISON: CT - ABD PELVIS IV CONTRAST ONLY 2017-08-29 15:40 FINDINGS: Limitations: Motion artifact - mild. Lung bases: No acute findings. ABDOMEN: Liver: Unremarkable. No mass. Gallbladder and bile ducts: No calcified stones. No ductal dilation. Pancreas: No ductal dilation. No mass. Spleen: No splenomegaly. Adrenals: No mass. Kidneys and ureters: No mass. No hydronephrosis. Stomach and bowel: No definite mural thickening. No obstruction. PELVIS: Appendix: Normal caliber. No inflammation. Bladder: Unremarkable. Reproductive: 1.3 x 0.8 x 0.6 cm peripherally enhancing hypodensity with crenulated margins within LEFT ovary. ABDOMEN and PELVIS: Intraperitoneal space: No significant fluid collection. No free air. Bones/joints: No acute fracture. Soft tissues: Unremarkable. Vasculature: Unremarkable. No aneurysm. Lymph nodes: No pathologically enlarged lymph nodes. IMPRESSION: 1. Involuting or ruptured LEFT ovarian follicle/cyst.
[2018-03-14 04:18] VITALS: BP 122/78; PULSE 82; RESP 20; TEMP 97.9; O2SAT 99
== END 2018-03-14 04:18 | disposition home or self-care (01) ==
LOC: ED 20:41
DX: N83.202 Unspecified ovarian cyst, left side (principal)
CPT/HCPCS: 74177; 80053; 81001; 81025; 83690; 85025; 85610; 86850; 86900; 87086; 99283; Q9966; Q9967

== ENCOUNTER 2018-06-05 19:06 | Emergency (ER) | payer BC ==
[2018-06-05 19:18] VITALS: BMI 21.2
[2018-06-05 19:24] VITALS: BP 99/65; PULSE 85; RESP 18; TEMP 98.1; O2SAT 98
--- NOTE | 2018-06-07 11:07 | ED PDOC ---
Arrival/HPI - General Chief Complaint: Upper Extremity Problem/Injury Time Seen by Provider: 06/05/18 19:27 Historian: Patient - History of Present Illness Narrative History of Present Illness (Text): 06/07/18 11:01 This is a 27 year old female with PMH of vertigo and anemia presenting to the ER for right axilla pain and right thigh rash. The right axilla pain is worse with movement and better with no movement. The pain radiates to the opposite shoulder and is not associated with muscle weakness, numbness or loss of sensation. The right thigh rash began suddenly and is not associated with tenderness. She denies chest pain, SOB, headaches, abdominal pain, hematuria, hematemesis, melena, trauma, back pain, loss of vision, loss of hearing, fevers , chills, nausea, urinary complaints, vomiting and recent sickness. She actively plays softball. PMD is Dr. Khoury Symptom Onset: Gradual Symptom Course: Unchanged Activities at Onset: Light Context: Home Past Medical History - Provider Review Nursing Documentation Reviewed: Yes - Infectious Disease Hx of Infectious Diseases: None - Tetanus Immunization Tetanus Immunization: Unknown - Past Medical History Past Medical History: No Previous - Cardiac Hx Cardiac Disorders: No - Pulmonary Hx Respiratory Disorders: No - Neurological Hx Neurological Disorder: No Hx Vertigo: Yes - HEENT Hx HEENT Disorder: No - Renal Hx Renal Disorder: No - Endocrine/Metabolic Hx Endocrine Disorders: No - Hematological/Oncological Hx Blood Disorders: Yes Hx Anemia: Yes - Integumentary Hx Dermatological Disorder: No - Musculoskeletal/Rheumatological Hx Musculoskeletal Disorders: No - Gastrointestinal Hx Gastrointestinal Disorders: No - Genitourinary/Gynecological Hx Genitourinary Disorders: No - Psychiatric Hx Psychophysiologic Disorder: No Hx Substance Use: Yes (marijuana-quit March 10, 2017) - Past Surgical History Past Surgical History: No Previous - Surgical History Hx Orthopedic Surgery: Yes (/l knee meniscus) - Anesthesia Hx Anesthesia: Yes Hx Anesthesia Reactions: No Hx Malignant Hyperthermia: No - Suicidal Assessment Feels Threatened In Home Enviroment: No Family/Social History - Physician Review Nursing Documentation Reviewed: Yes Family/Social History: Unknown Family HX Smoking Status: Former Smoker Hx Alcohol Use: Yes Hx Substance Use: Yes (marijuana-quit March 10, 2017) Substance used: Marijuana Hx Substance Use Treatment: No Allergies/Home Meds Allergies/Adverse Reactions: Allergies No Known Allergies Allergy (Verified 06/05/18 19:18) Home Medications: Home Meds Medication Instructions Recorded Confirmed No Known Home Med 06/05/18 06/05/18 Review of Systems - Physician Review All systems were reviewed & negative as marked: Yes - Review of Systems Constitutional: Normal. absent: Fevers Eyes: Normal. absent: Vision Changes ENT: Normal. absent: Hearing Changes Respiratory: Normal. absent: SOB, Cough Cardiovascular: Normal. absent: Chest Pain, Palpitations Gastrointestinal: Normal. absent: Abdominal Pain, Nausea, Vomiting, Hematochezia, Hematemesis Genitourinary Female: Normal. absent: Dysuria, Frequency Musculoskeletal: Other (right axilla pain). absent: Back Pain Skin: Rash, Other (rash on the right thigh) Neurological: Normal. absent: Headache, Dizziness Psychiatric: Normal Physical Exam Vital Signs Reviewed: Yes Vital Signs Temp Pulse Resp BP Pulse Ox 06/05/18 19:18 98.1 F 85 18 99/65 L 98 Temperature: Afebrile Blood Pressure: Other (99/65) Pulse: Regular Respiratory Rate: Normal Appearance: Positive for: Well-Appearing, Non-Toxic, Comfortable Pain Distress: None Mental Status: Positive for: Alert and Oriented X 3 - Systems Exam Head: Present: Atraumatic, Normocephalic Pupils: Present: PERRL Extroacular Muscles: Present: EOMI Conjunctiva: Present: Normal Mouth: Present: Moist Mucous Membranes Neck: Present: Normal Range of Motion Respiratory/Chest: Present: Clear to Auscultation, Good Air Exchange. No: Respiratory Distress, Accessory Muscle Use Cardiovascular: Present: Regular Rate and Rhythm, Normal S1, S2. No: Murmurs Abdomen: Present: Normal Bowel Sounds. No: Tenderness, Distention, Peritoneal Signs, Rebound, Guarding Back: Present: Normal Inspection Upper Extremity: Present: Normal Inspection, NORMAL PULSES, Other (right axilla tenderness that is worse with shoulder movement). No: Cyanosis, Edema Lower Extremity: Present: Normal Inspection. No: Edema Neurological: Present: CN II-XII Intact, Speech Normal, Motor Func Grossly Intact, Normal Sensory Function, Gait Normal Skin: Present: Warm, Dry, Normal Color, Other (vertical linear rash noted on right thigh, is non erythematous and non tender). No: Rashes Psychiatric: Present: Alert, Oriented x 3, Normal Insight, Normal Concentration Medical Decision Making ED Course and Treatment: 06/07/18 11:11 Impression: This is a 27 year old female with PMH of vertigo and anemia presenting to the ER for right axilla pain and right thigh rash. Plan: -EKG Progress: Patient left before any tests could be performed. Patient did not inform any staff member before walking out and left without any paperwork. - Medication Orders Current Medication Orders: Discontinued Medications Ibuprofen (Motrin Tab) 600 mg PO STAT STA Stop: 06/05/18 19:59 - PA / [employer]ACHINE / Resident Statement / has reviewed & agrees with the documentation as recorded. / has examined the patient and agrees with the treatment plan. Disposition/Present on Arrival - Present on Arrival Any Indicators Present on Arrival: No History of DVT/PE: No History of Uncontrolled Diabetes: No Urinary Catheter: No History of Decub. Ulcer: No History Surgical Site Infection Following: None - Disposition Have Diagnosis and Disposition been Completed?: Yes Diagnosis: Rash, Rib pain on right side Disposition: ELOPEMENT - ER ONLY Disposition Time: 20:00 Condition: GOOD Discharge Instructions (ExitCare): Chest Pain (ED) Forms: [employer] [facility] (Korean)
== END 2018-06-05 21:56 | disposition left against medical advice (07) ==
LOC: ED 19:06
DX: R21 Rash and other nonspecific skin eruption (principal); R07.81 Pleurodynia

== ENCOUNTER 2018-09-11 21:14 | Emergency (ER) | payer BC ==
[2018-09-11 21:14] VITALS: BMI 21.2
[2018-09-11 21:37] VITALS: O2SAT 100
--- NOTE | 2018-09-11 23:21 | ED PDOC ---
Arrival/HPI - General Chief Complaint: Chest Pain Time Seen by Provider: 09/11/18 21:23 Historian: Patient - History of Present Illness Narrative History of Present Illness (Text): 09/11/18 23:17 28yo female with pmhx of anemia who present with complaint of mid sternal chest pain s/p lifting boxes today. Notes pain is with any movement and deep inspiration. Did not take any pain medication for the pain. Denies SOB, diaphoresis, cough, fever, recent travel/surgery, nausea, vomiting, abdominal pain, any other complaint. Past Medical History - Provider Review Nursing Documentation Reviewed: Yes - Infectious Disease Hx of Infectious Diseases: None - Tetanus Immunization Tetanus Immunization: Unknown - Past Medical History Past Medical History: No Previous - Cardiac Hx Cardiac Disorders: No - Pulmonary Hx Respiratory Disorders: No - Neurological Hx Neurological Disorder: No Hx Vertigo: Yes - HEENT Hx HEENT Disorder: No - Renal Hx Renal Disorder: No - Endocrine/Metabolic Hx Endocrine Disorders: No - Hematological/Oncological Hx Blood Disorders: Yes Hx Anemia: Yes - Integumentary Hx Dermatological Disorder: No - Musculoskeletal/Rheumatological Hx Musculoskeletal Disorders: No - Gastrointestinal Hx Gastrointestinal Disorders: No - Genitourinary/Gynecological Hx Genitourinary Disorders: No - Psychiatric Hx Psychophysiologic Disorder: No Hx Substance Use: Yes - Past Surgical History Past Surgical History: No Previous - Surgical History Hx Orthopedic Surgery: Yes (/l knee meniscus) - Anesthesia Hx Anesthesia: Yes Hx Anesthesia Reactions: No Hx Malignant Hyperthermia: No - Suicidal Assessment Feels Threatened In Home Enviroment: No Family/Social History - Physician Review Nursing Documentation Reviewed: Yes Family/Social History: Unknown Family HX Smoking Status: Former Smoker Hx Alcohol Use: Yes Hx Substance Use: Yes Substance used: Marijuana Hx Substance Use Treatment: No Allergies/Home Meds Allergies/Adverse Reactions: Allergies No Known Allergies Allergy (Verified 06/05/18 19:18) Review of Systems - Physician Review All systems were reviewed & negative as marked: Yes - Review of Systems Constitutional: Normal Eyes: Normal ENT: Normal Respiratory: Normal Cardiovascular: Chest Pain. absent: Palpitations, Edema, Calf Pain Gastrointestinal: Normal Genitourinary Female: Normal Musculoskeletal: Normal Skin: Normal Neurological: Normal Endocrine: Normal Hemo/Lymphatic: Normal Psychiatric: Normal Physical Exam Vital Signs Reviewed: Yes Vital Signs Temp Pulse Resp BP Pulse Ox 09/11/18 21:33 98.4 F 66 17 108/50 L 100 Temperature: Afebrile Blood Pressure: Normal Pulse: Regular Respiratory Rate: Normal Appearance: Positive for: Well-Appearing, Non-Toxic, Comfortable Pain Distress: None Mental Status: Positive for: Alert and Oriented X 3 - Systems Exam Head: Present: Atraumatic, Normocephalic Pupils: Present: PERRL Extroacular Muscles: Present: EOMI Conjunctiva: Present: Normal Mouth: Present: Moist Mucous Membranes Neck: Present: Normal Range of Motion Respiratory/Chest: Present: Clear to Auscultation, Good Air Exchange. No: Respiratory Distress, Accessory Muscle Use, Wheezes, Decreased Breath Sounds, Rales, Retracting, Rhonchi, Tachypneic, Tender to Palpation Cardiovascular: Present: Regular Rate and Rhythm, Normal S1, S2. No: Murmurs Abdomen: No: Tenderness, Distention, Peritoneal Signs Back: Present: Normal Inspection Upper Extremity: Present: Normal Inspection. No: Cyanosis, Edema Lower Extremity: Present: Normal Inspection. No: Edema Neurological: Present: GCS=15, CN II-XII Intact, Speech Normal Skin: Present: Warm, Dry, Normal Color. No: Rashes Psychiatric: Present: Alert, Oriented x 3, Normal Insight, Normal Concentration Medical Decision Making ED Course and Treatment: 09/11/18 23:40 Pt presented to ED for stated history. she ws not in any distress. Not hypoxic or diaphoretic. she reported reproducible pain with movement and deep inspiration. Reports history of lifting boxes at work. EKG NSR @ 63bpm normal axis. Normal interval CXR NAD Pt pain was controlled in ED with medication. Result was DW the pt and she was advised to avoid strenuous activity until cleared by her PMD/stamp mounter. Ibuprofen 600mg was given for pain. Advised TRT ED for worsening symptoms. - RAD Interpretation Radiology Orders: 09/11/18 21:32 CHEST TWO VIEWS (PA/LAT) [RAD] Stat Disposition/Present on Arrival - Present on Arrival Any Indicators Present on Arrival: No History of DVT/PE: No History of Uncontrolled Diabetes: No Urinary Catheter: No History of Decub. Ulcer: No History Surgical Site Infection Following: None - Disposition Have Diagnosis and Disposition been Completed?: Yes Diagnosis: Chest pain Disposition: HOME/ ROUTINE Disposition Time: 23:20 Patient Plan: Discharge Patient Problems: Current Active Problems Problem Status Onset Chest pain Acute Condition: STABLE Discharge Instructions (ExitCare): Chest Pain (ED) Additional Instructions: Follow up with your Doctor/stamp mounter Return to ED for any worsening symptoms Avoid any strenuous activity until cleared by your PMD Prescriptions: RX: Ibuprofen [Motrin Tab] 600 mg PO Q6 #15 tab Referrals: Denny Khoury DO [Primary Care Provider] - Follow up with primary Roel Hope MD [Staff Provider] - Follow up with primary Forms: [employer] (Malay), WORK NOTE
[2018-09-11 23:40] VITALS: BP 108/51; PULSE 68; RESP 16; TEMP 98.2
--- NOTE | 2018-09-12 09:56 | RAD ---
Date of service: 09/11/2018 HISTORY: chest pain COMPARISON: Frontal chest radiograph 08/29/2018. TECHNIQUE: Chest PA and lateral FINDINGS: LUNGS: No active pulmonary disease. PLEURA: No significant pleural effusion identified. No pneumothorax apparent. CARDIOVASCULAR: No aortic atherosclerotic calcification present. Normal cardiac size. No pulmonary vascular congestion. OSSEOUS STRUCTURES: Limited scoliosis of the upper thoracic spine reiterated as well as upper lumbar spine. VISUALIZED UPPER ABDOMEN: Normal. OTHER FINDINGS: None. IMPRESSION: No interval acute cardiopulmonary disease appreciated.
--- NOTE | 2018-09-12 16:10 | CARD ---
APPROVED REPORT Date of service: 09/11/2018 EKG Measurement Heart [id number] <Conclusion> Normal sinus rhythm with sinus arrhythmia Normal ECG
== END 2018-09-11 23:50 | disposition home or self-care (01) ==
LOC: ED 21:14
DX: R07.9 Chest pain, unspecified (principal); D64.9 Anemia, unspecified
CPT/HCPCS: 71046; 93005; 96372; 99283; J1885

== ENCOUNTER 2018-11-01 18:24 | Emergency (ER) | payer SELFPAY ==
[2018-11-01 18:37] VITALS: BMI 22.2
[2018-11-01 18:39] VITALS: RESP 18; O2SAT 100
--- NOTE | 2018-11-01 19:11 | ED PDOC ---
Arrival/HPI - General Chief Complaint: Finger,Hand,&Wrist Time Seen by Provider: 11/01/18 18:30 Historian: Patient - History of Present Illness Narrative History of Present Illness (Text): 11/01/18 19:08 28-year-old female presents today with left wrist pain status post injury around 10 AM today. Patient states she has a prior history of hairline fracture to the left wrist for which she never followed up with the orthopedist and remove the splint and continued playing softball. Patient states today after lifting a heavy object she developed pain and a cracking/popping sound in the left wrist. Patient states she took Tylenol and ice the wrist without improvement. Patient denies numbness weakness or tingling in the extremity. She is complaining of pain along the dorsal aspect of the wrist. No other complaints Past Medical History - Provider Review Nursing Documentation Reviewed: Yes - Travel History Have you recently traveled outside [place] w/in the past 3 mons?: No - Infectious Disease Hx of Infectious Diseases: None - Tetanus Immunization Tetanus Immunization: Unknown - Past Medical History Past Medical History: No Previous - Cardiac Hx Cardiac Disorders: No - Pulmonary Hx Respiratory Disorders: No - Neurological Hx Neurological Disorder: Yes Hx Vertigo: Yes - HEENT Hx HEENT Disorder: No - Renal Hx Renal Disorder: No - Endocrine/Metabolic Hx Endocrine Disorders: No - Hematological/Oncological Hx Blood Disorders: Yes Hx Anemia: Yes - Integumentary Hx Dermatological Disorder: No - Musculoskeletal/Rheumatological Hx Musculoskeletal Disorders: No - Gastrointestinal Hx Gastrointestinal Disorders: No - Genitourinary/Gynecological Hx Genitourinary Disorders: No - Psychiatric Hx Psychophysiologic Disorder: No Hx Substance Use: Yes - Past Surgical History Past Surgical History: No Previous - Surgical History Hx Orthopedic Surgery: Yes (/l knee meniscus) - Anesthesia Hx Anesthesia: Yes Hx Anesthesia Reactions: No Hx Malignant Hyperthermia: No - Suicidal Assessment Feels Threatened In Home Enviroment: No Family/Social History - Physician Review Nursing Documentation Reviewed: Yes Family/Social History: Unknown Family HX Smoking Status: Former Smoker Hx Alcohol Use: Yes Frequency of alcohol use: Socially Hx Substance Use: Yes Substance used: Marijuana Hx Substance Use Treatment: No Allergies/Home Meds Allergies/Adverse Reactions: Allergies No Known Allergies Allergy (Verified 11/01/18 18:37) Review of Systems - Review of Systems Constitutional: absent: Fatigue, Fevers Respiratory: absent: SOB, Cough Cardiovascular: absent: Chest Pain, Palpitations Gastrointestinal: absent: Abdominal Pain, Nausea, Vomiting Musculoskeletal: Arthralgias (left wrist pain) Skin: absent: Rash, Pruritis Neurological: absent: Headache Psychiatric: absent: Anxiety, Depression Physical Exam Vital Signs Reviewed: Yes Vital Signs Temp Pulse Resp BP Pulse Ox 11/01/18 18:38 98.5 F 74 18 105/66 100 Temperature: Afebrile Blood Pressure: Normal Pulse: Regular Respiratory Rate: Normal Appearance: Positive for: Well-Appearing, Non-Toxic, Comfortable Pain Distress: None Mental Status: Positive for: Alert and Oriented X 3 - Systems Exam Head: Present: Atraumatic Mouth: Present: Moist Mucous Membranes Neck: Present: Normal Range of Motion Respiratory/Chest: Present: Clear to Auscultation, Good Air Exchange. No: Respiratory Distress, Accessory Muscle Use Cardiovascular: Present: Regular Rate and Rhythm, Normal S1, S2. No: Murmurs Upper Extremity: Present: Normal ROM, NORMAL PULSES, Tenderness (left wrist; + ttp over dorsal aspect of wrist; no snuff box tenderness. no edema, no erythema; no ecchymosis; full rom of wrist with pain. sensation and distal pulses intact. no snuff box tenderness. cap refill <2. ), Neurovascularly Intact, Capillary Refill < 2s. No: Swelling, Erythema, Deformity Neurological: Present: GCS=15 Skin: Present: Warm, Dry, Normal Color. No: Rashes Psychiatric: Present: Alert, Oriented x 3 Medical Decision Making ED Course and Treatment: 11/01/18 19:12 Patient nontoxic well-appearing in no distress with stable vital signs X-rays of the left wrist: ? fracture distal radius motrin po Patient placed in volar splint. I discussed all results with patient advised to followup with the orthopedist for the next 2 days. Return if symptoms worsen persist or new symptoms develop Patient verbalizes understanding of discharge instructions and need for immediate followup. Impression: Wrist fracture Motrin every 6 hours as needed for pain Rest, ice, compression, elevation use splint. Followup with the orthopedist within the next 2 days Followup with primary care physician within the next 2 days Return if any other concerning symptoms develop - RAD Interpretation Radiology Orders: 11/01/18 19:07 WRIST, LEFT 3 VIEWS [RAD] Stat - Medication Orders Current Medication Orders: Ketorolac Tromethamine (Toradol) 30 mg IM STAT STA Stop: 11/01/18 19:08 Procedures - Splinting Location: left wrist Hand-Made Type: fiberglass Splint: volar Pre-Proc Neuro Vasc Exam: normal Post-Proc Neuro Vasc Exam: normal Disposition/Present on Arrival - Present on Arrival Any Indicators Present on Arrival: No History of DVT/PE: No History of Uncontrolled Diabetes: No Urinary Catheter: No History of Decub. Ulcer: No History Surgical Site Infection Following: None - Disposition Have Diagnosis and Disposition been Completed?: Yes Diagnosis: Wrist fracture Disposition: HOME/ ROUTINE Disposition Time: 19:36 Patient Plan: Discharge Condition: GOOD Discharge Instructions (ExitCare): Wrist Fracture (DC) Additional Instructions: Motrin every 6 hours as needed for pain Rest, ice, compression, elevation use splint. Followup with the orthopedist within the next 2 days Followup with primary care physician within the next 2 days Return if any other concerning symptoms develop Prescriptions: Ibuprofen [Motrin] 600 mg PO Q6H PRN #20 tab PRN Reason: pain/fever reduction Referrals: Mahin Peña DO [Staff Provider] - Follow up with primary [facility] [Outside] - Follow up with primary [facility] [Outside] - Follow up with primary Forms: [facility] (Burkinan), WORK NOTE
[2018-11-01 21:46] VITALS: BP 115/68; PULSE 72; TEMP 98.4
--- NOTE | 2018-11-02 10:03 | RAD ---
Date of service: 11/01/2018 PROCEDURE: Left Wrist Radiographs. HISTORY: wrist pain/ hx of prior fx COMPARISON: 06/05/2015 FINDINGS: BONES: Normal. No fracture. JOINTS: Normal. No dislocation. SOFT TISSUES: Normal. OTHER FINDINGS: None. IMPRESSION: Normal left wrist radiographs.
== END 2018-11-01 20:20 | disposition home or self-care (01) ==
LOC: ED 18:24
DX: S52.502A Unspecified fracture of the lower end of left radius, initial encounter for closed fracture (principal); X50.0XXA Overexertion from strenuous movement or load, initial encounter
CPT/HCPCS: 29125; 73110; 96372; 99283; J1885

== ENCOUNTER 2019-01-15 09:57 | Emergency (ER) | payer SELFPAY ==
[2019-01-15 10:02] VITALS: BMI 21.9
[2019-01-15 10:06] VITALS: RESP 18; TEMP 97.3
--- NOTE | 2019-01-15 11:00 | ED PDOC ---
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 Patient reports a subjective fever yesterday, but none now. She also reports nose bleeding this morning, but there is no active bleeding presently. PT states with her history of vertigo she feels dizzy at times. denies dizziness currently. Patient denies any chills, headache, chest pain, shortness of breath, dyspnea on exertion, cough, abdominal pain, nausea, vomiting, diarrhea, back pain, neck pain, or any other complaints. Patient reports occasional drinking, and marijuana usage. Time/Duration: 24 hours Symptom Onset: Gradual Symptom Course: Unchanged Activities at Onset: Light Context: Home <Sheridan Lopez - Last Filed: 01/15/19 16:59> <Augusto Lopez - Last Filed: 01/15/19 17:21> - General Chief Complaint: ENT Problem Time Seen by Provider: 01/15/19 10:00 Past Medical History - Provider Review Nursing Documentation Reviewed: Yes - Infectious Disease Hx of Infectious Diseases: None - Tetanus Immunization Tetanus Immunization: Unknown - Past Medical History Past Medical History: No Previous - Cardiac Hx Cardiac Disorders: No - Pulmonary Hx Respiratory Disorders: No - Neurological Hx Neurological Disorder: Yes Hx Vertigo: Yes - HEENT Hx HEENT Disorder: No - Renal Hx Renal Disorder: No - Endocrine/Metabolic Hx Endocrine Disorders: No - Hematological/Oncological Hx Blood Disorders: Yes Hx Anemia: Yes - Integumentary Hx Dermatological Disorder: No - Musculoskeletal/Rheumatological Hx Musculoskeletal Disorders: No - Gastrointestinal Hx Gastrointestinal Disorders: No - Genitourinary/Gynecological Hx Genitourinary Disorders: No - Psychiatric Hx Psychophysiologic Disorder: No Hx Substance Use: Yes - Past Surgical History Past Surgical History: No Previous - Surgical History Hx Orthopedic Surgery: Yes (/l knee meniscus) - Anesthesia Hx Anesthesia: Yes Hx Anesthesia Reactions: No Hx Malignant Hyperthermia: No - Suicidal Assessment Feels Threatened In Home Enviroment: No <Sheridan Lopez - Last Filed: 01/15/19 16:59> Family/Social History - Physician Review Nursing Documentation Reviewed: Yes Family/Social History: Unknown Family HX Smoking Status: Former Smoker Hx Alcohol Use: Yes Hx Substance Use: Yes Substance used: Marijuana Hx Substance Use Treatment: No <JessicaSheridan T - Last Filed: 01/15/19 16:59> Allergies/Home Meds <Trevor Lopezwerner Bee - Last Filed: 01/15/19 16:59> <TolermaggieAugusto - Last Filed: 01/15/19 17:21> Allergies/Adverse Reactions: Allergies No Known Allergies Allergy (Verified 01/15/19 10:02) Review of Systems - Physician Review All systems were reviewed & negative as marked: Yes - Review of Systems Constitutional: absent: Fevers ENT: Other (left ear discomfort) Respiratory: absent: SOB Cardiovascular: absent: Chest Pain, BARNES Gastrointestinal: absent: Nausea, Vomiting Musculoskeletal: absent: Back Pain, Neck Pain Skin: absent: Rash Neurological: absent: Headache, Dizziness Endocrine: absent: Diaphoresis <Trevor Lopezina T - Last Filed: 01/15/19 16:59> Physical Exam Vital Signs Reviewed: Yes Vital Signs Temp Pulse Resp BP Pulse Ox 01/15/19 10:06 97.3 F L 77 18 107/72 97 Temperature: Afebrile Blood Pressure: Normal Pulse: Regular Respiratory Rate: Normal Appearance: Positive for: Well-Appearing, Non-Toxic, Comfortable Pain Distress: None Mental Status: Positive for: Alert and Oriented X 3 - Systems Exam Head: Present: Atraumatic Pupils: Present: PERRL Extroacular Muscles: Present: EOMI Conjunctiva: Present: Normal Ears: Present: Erythema (slight erythema noted to tm), Normal Canal, Other (dullness to left tympanic membrane, no mastoid tenderness). No: NORMAL TM, Fluid, TM Perf Mouth: Present: Moist Mucous Membranes. No: Drooling, Trismus Pharnyx: Present: Normal. No: ERYTHEMA, EXUDATE Nose (External): Present: Atraumatic Nose (Internal): Present: Clear Mucous, Other (nasal congestion). No: No Active Bleeding Neck: Present: Normal Range of Motion, Trachea Midline Respiratory/Chest: Present: Clear to Auscultation, Good Air Exchange. No: Respiratory Distress, Accessory Muscle Use Cardiovascular: Present: Regular Rate and Rhythm, Normal S1, S2. No: Murmurs Neurological: Present: GCS=15, Speech Normal Skin: Present: Warm, Dry, Normal Color. No: Rashes Psychiatric: Present: Alert, Oriented x 3 <Sheridan Lopez - Last Filed: 01/15/19 16:59> Vital Signs Temp Pulse Resp BP Pulse Ox 01/15/19 11:53 98 01/15/19 11:14 71 18 105/65 98 01/15/19 10:06 97.3 F L 77 18 107/72 97 <Augusto Lopez - Last Filed: 01/15/19 17:21> Medical Decision Making ED Course and Treatment: 01/15/19 11:15 Patient is nontoxic well appearing in no distress. Vital signs are stable toradol tylenol amoxicillin I advised follow up with primary care physician and ENT specialist within the next 2 days, advised to increase fluids take medications as prescribed and return if symptoms worsen persist or if new symptoms develop Patient verbalizes understanding of discharge instructions and need for immediate followup. all aspects of this case were discussed the attending of record. IMPRESSION; otitis media Motrin every 6 hours as needed for pain/fever reduction Increase fluids amoxicillin 3 times daily x 10 days. Flonase; 2 sprays each nostril once daily. Follow up primary care physician within the next 2 days Follow up with the ENT specialist within the next 2 days. Return if symptoms worsen persist or if the symptoms develop <Sheridan Lopez - Last Filed: 01/15/19 16:59> - Medication Orders Current Medication Orders: Discontinued Medications Acetaminophen (Tylenol 325mg Tab) 650 mg PO STAT STA Stop: 01/15/19 10:50 Last Admin: 01/15/19 11:12 Dose: 650 mg MAR Pain/Vitals Document 01/15/19 11:12 RICH (Rec: 01/15/19 11:12 R[id number]) Sleep Is patient sleeping during reassessment? No Presence of Pain Presence of Pain Yes Amoxicillin (Amoxil 500 Mg Cap) 500 mg PO STAT STA; Protocol Stop: 01/15/19 10:50 Last Admin: 01/15/19 11:12 Dose: 500 mg Ketorolac Tromethamine (Toradol) 30 mg IM STAT STA Stop: 01/15/19 10:50 Last Admin: 01/15/19 11:12 Dose: 30 mg MAR Pain Assessment Document 01/15/19 11:12 RICH (Rec: [facility]15[facility] 11:12 [id number] Pain Reassessment Is this a pain reassessment? No Sleep Is patient sleeping during reassessment? No Presence of Pain Presence of Pain Yes IM Administration Charges Document 01/15/19 11:12 RICH (Rec: 01/15/19 11:12 [facility] [id number]) Charges for Administration # of IM Administrations 1 <Augusto Lopez - Last Filed: 01/15/19 17:21> - PA / CHILD WELFARE SPECIALIST / Resident Statement / has reviewed & agrees with the documentation as recorded. - Scribe Statement The provider has reviewed the documentation as recorded by the Daovnibpetra Bernardo, marichuy with arielle All medical record entries made by the Davonibpetra were at my direction and personally dictated by me. I have reviewed the chart and agree that the record accurately reflects my personal performance of the history, physical exam, m edical decision making, and the department course for this patient. I have also personally directed, reviewed, and agree with the discharge instructions and disposition. <Sheridan Lopez - Last Filed: 01/15/19 16:59> - PA / CHILD WELFARE SPECIALIST / Resident Statement CODY has reviewed & agrees with the documentation as recorded. <Augusto Lopez - Last Filed: 01/15/19 17:21> Disposition/Present on Arrival - Present on Arrival Any Indicators Present on Arrival: No History of DVT/PE: No History of Uncontrolled Diabetes: No Urinary Catheter: No History of Decub. Ulcer: No History Surgical Site Infection Following: None - Disposition Have Diagnosis and Disposition been Completed?: Yes Disposition Time: 11:16 Patient Plan: Discharge <Sheridan Lopez - Last Filed: 01/15/19 16:59> <Augusto Lopez - Last Filed: 01/15/19 17:21> - Disposition Diagnosis: Otitis media Disposition: HOME/ ROUTINE Condition: GOOD Discharge Instructions (ExitCare): Ear Infections (Otitis Media) (DC) Additional Instructions: Motrin every 6 hours as needed for pain/fever reduction Increase fluids amoxicillin 3 times daily x 10 days. Flonase; 2 sprays each nostril once daily. Follow up primary care physician within the next 2 days Follow up with the ENT specialist within the next 2 days. Return if symptoms worsen persist or if the symptoms develop Prescriptions: Amoxicillin 500 mg PO TID #30 tab Fluticasone Nasal [Flonase] 2 spr NS DAILY #1 spr Ibuprofen [Motrin] 600 mg PO Q6H PRN #20 tab PRN Reason: pain/fever reduction Referrals: [facility] [Outside] - Follow up with primary Kolton Arellano DO [Doctor Osteopathy] - Follow up with primary Lacey Leslie MD [Medical Doctor] - Follow up with primary Forms: [employer] (Vietnamese), WORK NOTE
[2019-01-15 11:14] VITALS: BP 105/65; PULSE 71; O2SAT 98
== END 2019-01-15 11:53 | disposition home or self-care (01) ==
LOC: ED 09:57
DX: H66.92 Otitis media, unspecified, left ear (principal); Z87.891 Personal history of nicotine dependence
CPT/HCPCS: 81025; 96372; 99282; J1885